=== PATIENT | male | born 1955 | race Caucasian/White ===

== ENCOUNTER 2016-10-09 16:36 | Emergency (ER) | payer OTHER ==
[2016-10-09 17:09] VITALS: BP 124/74
--- NOTE | 2016-10-09 18:05 | EDM.PDOC ---
[id number]: COUGHING UP BLOOD Time Seen by Provider: 10/09/16 18:00 Source of Information: Reports: Patient History Limitations: Reports: No Limitations - History of Present Illness INITIAL COMMENTS - FREE TEXT/NARRATIVE: 60-year-old male with COPD has had hemoptysis for the last 24 hours. This occurred after being exposed to some heavy smoke at work the last 1 to 2 days. He is asymptomatic. His COPD a stable. He has no fever or significant productive cough other than the hemoptysis. No pain. No recent trauma. Onset: Sudden Duration: Hour(s): (Over the last 12-24 hours) Severity: Mild Associated Symptoms: Reports: Cough (Chronic and stable), Shortness of Breath ( Chronic and stable). Denies: Fever/Chills, Nausea/Vomiting - Related Data Allergies Allergy/AdvReac Type Severity Reaction Status Date / Time No Known Allergies Allergy Verified 05/22/16 14:15 Home Meds: Home Meds predniSONE [Prednisone] 1 mg PO BID 07/30/14 [History] Albuterol [Proventil HFA] 2 puff INH TID PRN 10/04/15 [History] Gabapentin [Neurontin] 800 mg PO TID 10/04/15 [History] Budesonide/Formoterol [Symbicort 80-4.5 MCG] 2 puff INH BID 04/12/16 [History] Acetaminophen [Tylenol Extra Strength] 500 mg PO Q4HR 05/22/16 [History] Aspirin [Ecotrin] 81 mg PO DAILY 05/22/16 [History] Clopidogrel Bisulfate [Plavix] 75 mg PO BEDTIME 05/22/16 [History] Lisinopril 2.5 mg PO DAILY 05/22/16 [History] Metoprolol Tartrate 25 mg PO BID 05/22/16 [History] atorvaSTATin Calcium [Atorvastatin Calcium] 40 mg PO BEDTIME 05/22/16 [History] Past Medical History Cardiovascular History: Reports: [place], Stents Respiratory History: Reports: COPD Musculoskeletal History: Reports: Back Pain, Chronic, Other (See Below) Other Musculoskeletal History: spondylosis Neurological History: Reports: Neuropathy, Peripheral - Infectious Disease History Infectious Disease History: Reports: Chicken Pox, Measles, Mumps Other Infectious Disease History: unknown - Past Surgical History GI Surgical History: Reports: Cholecystectomy, Hernia Repair/Other Social & Family History - Family History Family Medical History: Noncontributory - Tobacco Use Smoking Status *Q: Current Every Day Smoker Years of Tobacco use: 40 Packs/Tins Daily: 0.5 Used Tobacco, but Quit: No Second Hand Smoke Exposure: Yes - Caffeine Use Caffeine Use: Reports: Coffee, Soda - Alcohol Use Days Per Week of Alcohol Use: 0 - Recreational Drug Use Recreational Drug Use: No ED ROS GENERAL - Review of Systems Review Of Systems: See Below Constitutional: Denies: Fever, Chills HEENT: Reports: No Symptoms. Denies: Throat Pain Respiratory: Reports: Cough, Hemoptysis Cardiovascular: Denies: Chest Pain, Palpitations GI/Abdominal: Denies: Abdominal Pain, Nausea, Vomiting Musculoskeletal: Reports: Back Pain (Chronic and stable) Skin: Reports: No Symptoms Neurological: Denies: Dizziness, Headache Psychiatric: Reports: No Symptoms ED EXAM, GENERAL - Physical Exam Exam: See Below Exam Limited By: No Limitations General Appearance: Alert, No Apparent Distress Head: Atraumatic Respiratory/Chest: No Respiratory Distress, Lungs Clear, Decreased Breath Sounds (Diffuse) Cardiovascular: Regular Rate, Rhythm Extremities: No: Pedal Edema Neurological: Alert, Oriented Psychiatric: Normal Affect, Normal Mood Skin Exam: Warm, Dry Course - Vital Signs Last Recorded V/S: Last Vital Signs Temp 98.4 F 10/09/16 17:30 Pulse 74 10/09/16 17:30 Resp 16 10/09/16 17:30 BP 124/74 10/09/16 17:30 Pulse Ox 91 L 10/09/16 17:30 - Orders/Labs/Meds Orders: Active Orders 24 hr Category Date Time Status Chest w Cont [CT] Stat Exams 10/09/16 18:29 Taken Saline Lock Insert [OM.PC] Routine Oth 10/09/16 18:19 Ordered Labs: Laboratory Tests 10/09/16 10/09/16 Range/Units 18:10 18:10 WBC 10.3 (4.5-11.0) K/uL RBC 4.86 (4.30-5.90) M/uL Hgb 15.6 H (12.0-15.0) g/dL Hct 45.7 (40.0-54.0) % MCV 94 (80-98) fL MCH 32 H (27-31) pg MCHC 34 (32-36) % Plt Count 167 (150-400) K/uL Neut % (Auto) 58 (36-66) % Lymph % (Auto) 19 L (24-44) % Iron % (Auto) 11 H (2-6) % Eos % (Auto) 11 H (2-4) % Baso % (Auto) 1 (0-1) % Sodium 136 L (140-148) mmol/L Potassium 4.3 (3.6-5.2) mmol/L Chloride 100 (100-108) mmol/L Carbon Dioxide 28 (21-32) mmol/L Anion Gap 12.3 (5.0-14.0) mmol/L BUN 10 (7-18) mg/dL Creatinine 1.0 (0.8-1.3) mg/dL Est Cr Clr Drug Dosing 74.33 mL/min Estimated GFR (MDRD) > 60 (>60) Glucose 114 H (74-106) mg/dL Calcium 8.4 L (8.5-10.1) mg/dL Meds: Medications Discontinued Medications Generic Name Dose Route Start Last Admin Trade Name Freq PRN Reason Stop Dose Admin Sodium Chloride 75 mls @ 3 mls/sec 10/09/16 18:31 10/09/16 18:41 Normal Saline IV 10/09/16 18:32 3 mls/sec ONETIME ONE Administration Iopamidol 100 ml 10/09/16 18:31 10/09/16 18:42 Isovue-300 (61%) IV 10/09/16 18:32 100 ml . DIRECTED PRN Administration RADIOLOGY EXAM Sodium Chloride 10 ml 10/09/16 18:19 10/09/16 19:16 Saline Flush FLUSH 10 ml ASDIRECTED PRN Administration Keep Vein Open Sodium Chloride 10 ml 10/09/16 18:31 10/09/16 18:41 Saline Flush FLUSH 10 ml ONETIME PRN Administration PER RADIOLOGY PROTOCOL - Re-Assessments/Exams Free Text/Narrative Re-Assessment/Exam: 10/09/16 18:04 CBC and BMP were obtained. His creatinine and GFR are normal, a CT with IV contrast of the chest will be obtained. 10/09/16 19:[address] of his chest showed a possible collection of hemoptysis or blood in the base of the lung, and a small nodule that did not appear to be related to the hemoptysis. No obvious evidence of malignancy. Patient will be placed on Levaquin 500 mg daily and asked to follow up at the [facility] for any further studies. Departure - Departure Time of Disposition: 20:27 Disposition: Home, Self-Care 01 Condition: good Clinical Impression: Hemoptysis, unspecified - Discharge Information Instructions: Hemoptysis, [id number] Referrals: PCP,None [Primary Care Provider] - Forms: ED Department Discharge Care Plan Goals: Take antibiotic [facility] prescribed[facility] to discuss the results, especially if hemoptysis persists. Return sooner anytime if worsening such as concerning increase in cough or bleeding, or increased shortness of breath. - My Orders Last 24 Hours: My Active Orders 10/09/16 18:19 Saline Lock Insert [OM.PC] Routine 10/09/16 18:29 Chest w Cont [CT] Stat - Assessment/Plan Last 24 Hours: My Active Orders 10/09/16 18:19 Saline Lock Insert [OM.PC] Routine 10/09/16 18:29 Chest w Cont [CT] Stat
[2016-10-09] MEDS ORDERED: Sodium Chloride 0.9% 10 ML Syringe FLUSH PRN ×2 (18:19→18:31)
[2016-10-09] MEDS ORDERED: Sodium Chloride 0.9% 75 ML IV ONE (18:31)
[2016-10-09] MEDS ORDERED: Iopamidol 612 MG/ML 100 ML Bottle IV PRN (18:31)
== END 2016-10-09 20:15 | disposition home or self-care (01) ==
LOC: JP.ED 16:36
DX: R04.2 Hemoptysis (principal); I25.2 Old myocardial infarction; J44.9 Chronic obstructive pulmonary disease, unspecified; F17.210 Nicotine dependence, cigarettes, uncomplicated; Z90.49 Acquired absence of other specified parts of digestive tract; Z98.890 Other specified postprocedural states; Z79.82 Long term (current) use of aspirin; Z79.02 Long term (current) use of antithrombotics/antiplatelets; Z79.899 Other long term (current) drug therapy
CPT/HCPCS: 36415; 71260; 80048; 85025; 99284; J7030; J7050; Q9967

== ENCOUNTER 2018-08-26 17:52 | Emergency (ER) | payer OTHER | END 2018-08-26 18:03 | disposition left against medical advice (07) | LOC: JP.ED 17:52 | DX: Z53.21 Procedure and treatment not carried out due to patient leaving prior to being seen by health care provider (principal) ==

== ENCOUNTER 2019-08-30 08:41 | Inpatient (IN) | payer OTHER ==
[2019-08-30] MEDS ORDERED: Albuterol/Ipratropium 3.0-0.5 MG/3 ML Neb Soln NEB ONE (08:44)
[2019-08-30] MEDS ORDERED: HYDROmorphone 1 MG/ML Syringe IVPUSH ONE (08:51)
--- NOTE | 2019-08-30 08:53 | EDM.PDOC ---
ED HPI GENERAL MEDICAL PROBLEM - General Stated Complaint: [facility] Time Seen by Provider: 08/30/19 08:43 Source of Information: Reports: Patient, EMS History Limitations: Reports: No Limitations - History of Present Illness INITIAL COMMENTS - FREE TEXT/NARRATIVE: 64-year-old male with COPD, had 30 minutes of hemoptysis last evening he has never had this in the past. He does have a diagnosis of COPD. This morning at 5:30 AM he started coughing again with hemoptysis and is been persistent ever since. He has developed increasing shortness of breath. He has nebulizers at home but not home O2. No pain or fever. He has had some darker stools the last 24 hours as well. He is a DNR/DNI. Reviewing his past records however I saw this patient for hemoptysis in 2017. A CT chest of the chest at that time was inconclusive for source of bleeding, it resolved and a follow-up with the [place] apparently they suspected the lipid exposure along with his COPD at work. He has since retired. He continues to smoke a pack of cigarettes a day. He has been trying to get oxygen from the [place] , but he needs to quit smoking to get oxygen and he can't quit. Onset: Sudden (Hemoptysis started suddenly last evening and lasted 1/2-hour and then resolved till 530 this morning) Associated Symptoms: Reports: Cough, Shortness of Breath - Related Data Allergies Allergy/AdvReac Type Severity Reaction Status Date / Time No Known Allergies Allergy Verified 05/22/16 14:15 Home Meds: Home Meds predniSONE [Prednisone] 1 mg PO BID 07/30/14 [History] Albuterol [Proventil HFA] 2 puff INH TID PRN 10/04/15 [History] Budesonide/Formoterol [Symbicort 80-4.5 MCG] 2 puff INH BID 04/12/16 [History] Acetaminophen [Tylenol Extra Strength] 500 mg PO Q4HR 05/22/16 [History] Aspirin [Ecotrin EC] 81 mg PO DAILY 05/22/16 [History] Clopidogrel Bisulfate [Plavix] 75 mg PO BEDTIME 05/22/16 [History] Lisinopril 2.5 mg PO DAILY 05/22/16 [History] Metoprolol Tartrate 25 mg PO BID 05/22/16 [History] atorvaSTATin Calcium [Atorvastatin Calcium] 40 mg PO BEDTIME 05/22/16 [History] Pregabalin [Lyrica] 150 mg PO TID 08/30/19 [History] Tiotropium [Spiriva] 18 mcg INH DAILY 08/30/19 [History] Past Medical History Cardiovascular History: Reports: [place], Stents Respiratory History: Reports: COPD Musculoskeletal History: Reports: Back Pain, Chronic, Other (See Below) Other Musculoskeletal History: spondylosis Neurological History: Reports: Neuropathy, Peripheral - Infectious Disease History Infectious Disease History: Reports: Chicken Pox, Measles, Mumps Other Infectious Disease History: unknown - Past Surgical History GI Surgical History: Reports: Cholecystectomy, Hernia Repair/Other Social & Family History - Family History Family Medical History: Noncontributory - Caffeine Use Caffeine Use: Reports: Coffee, Soda ED ROS GENERAL - Review of Systems Review Of Systems: See Below Constitutional: Denies: Fever, Chills HEENT: Denies: Throat Pain Respiratory: Reports: Shortness of Breath, Cough, Hemoptysis Cardiovascular: Denies: Chest Pain GI/Abdominal: Denies: Nausea, Vomiting Skin: Reports: No Symptoms Neurological: Denies: Headache ED EXAM, GENERAL - Physical Exam Exam: See Below Exam Limited By: No Limitations General Appearance: Alert, No Apparent Distress Eye Exam: Bilateral Eye: EOMI (Sclera normal) Nose: Other (A small amount of blood at the left nares) Throat/Mouth: Other (Significant amount of non-clotted blood in the oral airway , on the tongue and palate.) Head: Atraumatic Neck: Supple Respiratory/Chest: Decreased Breath Sounds (Decreased breath sounds at the bases with scattered basilar rales) Cardiovascular: Regular Rate, Rhythm GI/Abdominal: Soft, Non-Tender Extremities: Normal Inspection. No: Pedal Edema Neurological: Alert, Oriented Psychiatric: Normal Affect, Normal Mood Skin Exam: Warm, Dry, Other (Numerous bruises on the extremities especially the upper extremities in various stages of healing) Course - Vital Signs Last Recorded V/S: Last Vital Signs Temp 97.5 F 08/30/19 12:51 Pulse 102 H 08/30/19 14:38 Resp 20 08/30/19 12:51 BP 101/64 08/30/19 12:51 Pulse Ox 89 L 08/30/19 13:13 - Orders/Labs/Meds Orders: Medication Orders Acetaminophen (Tylenol) 650 mg PO Q4H PRN PRN Reason: Pain (Mild 1-3)/fever Albuterol (Proventil Neb Soln) 2.5 mg NEB Q4H PRN PRN Reason: Shortness Of Breath/wheezing Albuterol/Ipratropium (Duoneb 3.0-0.5 Mg/3 Ml) 3 ml NEB QIDRT [facility] Last Admin: 08/30/19 14:38 Dose: 3 ml Aspirin (Halfprin) 81 mg PO DAILY [facility] Atorvastatin Calcium (Lipitor) 40 mg PO BEDTIME [facility] Benzonatate (Tessalon Perles) 100 mg PO TID PRN PRN Reason: Cough Glycopyrrolate (Seebri Neohaler) 15.6 mcg IH BIDRT [facility] Lisinopril (Prinivil) 2.5 mg PO DAILY [facility] Lorazepam (Ativan) 0.5 mg IVPUSH Q4H PRN PRN Reason: Nausea/Vomiting Magnesium Hydroxide (Milk Of Magnesia) 30 ml PO Q12H PRN PRN Reason: Constipation Methylprednisolone Sodium Succinate (Solu-Medrol) 62.5 mg IVPUSH Q8H [facility] Stop: 08/30/19 20:01 Metoprolol Tartrate (Lopressor) 25 mg PO BID [facility] Ondansetron HCl (Zofran Odt) 4 mg PO Q6H PRN PRN Reason: Nausea able to take PO Ondansetron HCl (Zofran) 4 mg IV Q6H PRN PRN Reason: Nausea/Vomiting Oxycodone HCl (Oxycodone) 5 mg PO Q4H PRN PRN Reason: Pain (moderate 4-6) Prednisone (Prednisone) 40 mg PO WITHBREAKFAST [facility] Pregabalin (Lyrica) 150 mg PO TID [facility] Last Admin: 08/30/19 13:54 Dose: 150 mg Fluticasone/Salmeterol (Fluticasone-Salmeterol 113-14 Mcg Powder Inh) 1 puff INH BIDRT [facility] Senna/Docusate Sodium (Senna Plus) 1 tab PO BID PRN PRN Reason: Constipation Labs: Laboratory Tests 08/30/19 08/30/19 08/30/19 Range/Units 08:57 08:57 08:57 WBC 12.9 H (4.5-11.0) K/uL RBC 4.71 (4.30-5.90) M/uL Hgb 14.9 (12.0-15.0) g/dL Hct 44.5 (40.0-54.0) % MCV 95 (80-98) fL MCH 32 H (27-31) pg MCHC 34 (32-36) % Plt Count 156 (150-400) K/uL Neut % (Auto) 75 H (36-66) % Lymph % (Auto) 13 L (24-44) % [place] % (Auto) 9 H (2-6) % Eos % (Auto) 3 (2-4) % Baso % (Auto) 1 (0-1) % PT 12.7 H (9.5-12.0) sec INR 1.19 (0.80-1.20) APTT 27.8 (27.0-36.0) sec Sodium 133 L (140-148) mmol/L Potassium 4.7 (3.6-5.2) mmol/L Chloride 99 L (100-108) mmol/L Carbon Dioxide 27 (21-32) mmol/L Anion Gap 11.7 (5.0-14.0) mmol/L BUN 30 H D (7-18) mg/dL Creatinine 1.0 (0.8-1.3) mg/dL Est Cr Clr Drug Dosing 65.57 mL/min Estimated GFR (MDRD) > 60 (>60) Glucose 100 (74-106) mg/dL Calcium 8.2 L (8.5-10.1) mg/dL Total Bilirubin 1.0 D (0.2-1.0) mg/dL AST 24 (15-37) U/L ALT 23 (12-78) U/L Alkaline Phosphatase 111 (46-116) U/L Troponin I < 0.017 (0.000-0.056) ng/mL Total Protein 6.0 L (6.4-8.2) g/dL Albumin 3.2 L (3.4-5.0) g/dL Globulin 2.8 (2.3-3.5) g/dL Albumin/Globulin Ratio 1.1 L (1.2-2.2) Meds: Medications Generic Name Dose Route Start Last Admin Trade Name Freq PRN Reason Stop Dose Admin Acetaminophen 650 mg 08/30/19 12:44 Tylenol PO Q4H PRN Pain (Mild 1-3)/fever Albuterol 2.5 mg 08/30/19 12:44 Proventil Neb Soln NEB Q4H PRN Shortness Of Breath/wheezing Albuterol/Ipratropium 3 ml 08/30/19 15:00 08/30/19 14:38 Duoneb 3.0-0.5 Mg/3 Ml NEB 3 ml QIDRT [facility] Administration Aspirin 81 mg 08/31/19 09:00 Halfprin PO DAILY [facility] Atorvastatin Calcium 40 mg 08/30/19 21:00 Lipitor PO BEDTIME [facility] Benzonatate 100 mg 08/30/19 12:44 Tessalon Perles PO TID PRN Cough Glycopyrrolate 15.6 mcg 08/31/19 09:00 Seebri Neohaler IH BIDRT [facility] Lisinopril 2.5 mg 08/31/19 09:00 Prinivil PO DAILY [facility] Lorazepam 0.5 mg 08/30/19 12:44 Ativan IVPUSH Q4H PRN Nausea/Vomiting Magnesium Hydroxide 30 ml 08/30/19 12:44 Milk Of Magnesia PO Q12H PRN Constipation Methylprednisolone Sodium Succinate 62.5 mg 08/30/19 20:00 Solu-Medrol IVPUSH 08/30/19 20:01 Q8H [facility] Metoprolol Tartrate 25 mg 08/30/19 21:00 Lopressor PO BID [facility] Ondansetron HCl 4 mg 08/30/19 12:44 Zofran Odt PO Q6H PRN Nausea able to take PO Ondansetron HCl 4 mg 08/30/19 12:44 Zofran IV Q6H PRN Nausea/Vomiting Oxycodone HCl 5 mg 08/30/19 12:44 Oxycodone PO Q4H PRN Pain (moderate 4-6) Prednisone 40 mg 08/31/19 08:00 Prednisone PO WITHBREAKFAST [facility] Pregabalin 150 mg 08/30/19 14:00 08/30/19 13:54 Lyrica PO 150 mg TID [facility] Administration Fluticasone/Salmeterol 1 puff 08/30/19 21:00 Fluticasone-Salmeterol 113-14 Mcg Powder Inh INH BIDRT [facility] Senna/Docusate Sodium 1 tab 08/30/19 12:44 Senna Plus PO BID PRN Constipation Discontinued Medications Generic Name Dose Route Start Last Admin Trade Name Gregoryq PRN Reason Stop Dose Admin Albuterol/Ipratropium 3 ml 08/30/19 08:44 08/30/19 08:53 Duoneb 3.0-0.5 Mg/3 Ml NEB 08/30/19 08:45 3 ml ONETIME ONE Administration Sodium Chloride 75 mls @ 3 mls/sec 08/30/19 09:45 08/30/19 10:02 Normal Saline IV 08/30/19 09:46 3 mls/sec ASDIRECTED PAOLA Administration Iopamidol 100 ml 08/30/19 09:44 08/30/19 10:01 Isovue-300 (61%) IV 08/30/19 09:45 100 ml ONETIME ONE Administration Methylprednisolone Sodium Succinate 125 mg 08/30/19 13:00 08/30/19 13:54 Solu-Medrol IVPUSH 08/30/19 13:01 125 mg ONETIME ONE Administration Sodium Chloride 10 ml 08/30/19 09:44 08/30/19 10:01 Saline Flush FLUSH 08/30/19 09:45 10 ml ONETIME PRN Administration per radiology protocol - Re-Assessments/Exams Free Text/Narrative Re-Assessment/Exam: 08/30/19 09:10 A portable chest x-ray was taken which shows bibasilar patchy infiltrates mostly on the right and a possible small nodular density in the right apex, official reading is pending. CBC CMP troponin PT PTT were drawn. 02 gave the patient marked objective and subjective improvement. 08/30/19 09:38 Patient continued to have episodes of intermittent hemoptysis. Chest x-ray reported as below IMPRESSION: 1. Pulmonary emphysema with COPD. 2. Pneumonic infiltrates both lower lobes more on the right. CBC is normal, CMP is relatively normal and troponin is negative. INR is 1.19. A CT of the chest with IV contrast was ordered, and we will contact the [place] [facility] to make sure that admission here is approved. Physically the patient feels much better, like he could "go home". Departure - Departure Time of Disposition: 13:15 Disposition: Admitted As Inpatient 64 Clinical Impression: Hemoptysis, unspecified COPD (chronic obstructive pulmonary disease) Qualifiers: COPD type: emphysema Emphysema type: panlobular Qualified Code(s): J43.1 - Panlobular emphysema - Discharge Information Sepsis Event Note - Focused Exam Vital Signs: Vital Signs Temp Pulse Resp BP Pulse Ox 08/30/19 11:08 94 15 122/74 91 L 08/30/19 08:48 95.6 F L 88 19 143/82 H 89 L Date Exam was Performed: 08/30/19 Time Exam was Performed: 14:39
--- NOTE | 2019-08-30 09:12 | CRLCR ---
INDICATION: Hemoptysis. COMPARISON: None. TECHNIQUE: Portable AP chest. FINDINGS: Pulmonary emphysema was COPD. Pulmonary infiltrates both lower lobes more on the right. No pneumothorax or pleural effusion. IMPRESSION: 1. Pulmonary emphysema with COPD. 2. Pneumonic infiltrates both lower lobes more on the right. Dictated by Mj Gonzales MD @ Aug 30 2019 9:10AM Signed by Dr. Mj Gonzales @ Aug 30 2019 9:11AM
[2019-08-30] MEDS ORDERED: Sodium Chloride 0.9% 10 ML Syringe FLUSH PRN (09:44)
[2019-08-30] MEDS ORDERED: Iopamidol 612 MG/ML 500 ML Multipack Bottle IV ONE (09:44)
[2019-08-30] MEDS ORDERED: Sodium Chloride 0.9% 75 ML IV SCH (09:45)
--- NOTE | 2019-08-30 11:01 | CT ---
Chest w Cont CLINICAL HISTORY: Hemoptysis TECHNIQUE: Transverse scans were obtained from the thoracic inlet to the lung bases without contrast. Auto dosage reduction and iterative reconstruction techniques employed. COMPARISONS: October 2016 FINDINGS: There are diffuse bullous emphysematous changes. The these are predominantly subpleural in location. There is a large bulla in the right posterior and lateral basal segments approximately 10 x 15 x 4 cm. There is a dependent fluid level. This measures high for simple pleural fluid. This may represent some hemorrhage. The infected bulla is possible. Patient has diffuse bilateral right middle lobe and both lower lobe groundglass opacities. There are areas of patchy fibrosis. There are also some patchy nongroundglass like opacities. There is diffuse cylindrical and traction bronchiectasis. There is some honeycombing in the bases. Pulmonary arteries show no filling defects. There are scattered the small mediastinal lymph nodes in the pericarinal region and aortopulmonic window. Largest in the precarinal space measures 1.4 x 0.9 cm. There is a pulmonary nodule near the left hemidiaphragm currently measuring 9 mm. This is very minimal growth over approximately 3 years. IMPRESSION: Severe changes of COPD with numerous large bulla. Large bulla in the right lower lobe with dependent high density fluid collection. This could be blood or pus. Diffuse patchy groundglass opacities and scattered infiltrate-like densities bilaterally. This is felt to represent changes of diffuse alveolar hemorrhage of unknown etiology. 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 Patient has a history of prior hemoptysis. Superimposed pneumonitis would be consideration if there is a fever.
--- NOTE | 2019-08-30 12:13 | PCM.HP.2 ---
H&P History of Present Illness - General Date of Service: 08/30/19 Admit Problem/Dx: Admission Diagnosis/Problem Admission Diagnosis/Problem Acute exacerbation of chronic obstructive airways disease Source of Information: Patient, Provider History Limitations: Reports: No Limitations - History of Present Illness Initial Comments - Free Text/Narative: CC: I keep coughing up blood HPI: Skyler presents to the emergency room today with hemoptysis. He first noticed this yesterday afternoon. He was out in the yard raking when he suddenly developed a cough. Shortly thereafter he developed hemoptysis. He reports moderate hemoptysis throughout the evening before it slowed down. Overnight he had increased hemoptysis again so he came to the emergency room early this morning. He has not had any chest pain. He was very short of breath this morning though he does feel better now that he is on some supplemental oxygen. He has not had any fevers or chills. He did not have a preceding cough. He does not have myalgias or arthralgias. No change in bowel or bladder habits. He did have black stool this morning but thinks it is because he has been swallowing some of the blood that he has been coughing up overnight. He did have an episode of hemoptysis about 3 years ago that resolved spontaneously and did not require any intervention at that time. He does continue to smoke. He has not had any sick contacts or travel. Work-up in the emergency room was unremarkable as far as his laboratory studies. His white count was normal. Vital signs were stable other than his oxygen. Chest x-ray suggested a possible lower lung pneumonia. CT scan was obtained which showed possible blood versus hemosiderin versus pneumonitis in the lower lungs. There appeared to be a popped bleb with a fluid level concerning for hemorrhage though this was relatively small. No obvious evidence for malignancy. Significant emphysema was noted on the CT scan. Patient was requiring 4 L of supplemental oxygen to keep his oxygen saturation around 90%. He was admitted for an exacerbation of his COPD and further monitoring of the hemoptysis. - Related Data Allergies/Adverse Reactions: Allergies Allergy/AdvReac Type Severity Reaction Status Date / Time No Known Allergies Allergy Verified 05/22/16 14:15 Home Medications: Home Meds predniSONE [Prednisone] 1 mg PO BID 07/30/14 [History] Albuterol [Proventil HFA] 2 puff INH TID PRN 10/04/15 [History] Budesonide/Formoterol [Symbicort 80-4.5 MCG] 2 puff INH BID 04/12/16 [History] Acetaminophen [Tylenol Extra Strength] 500 mg PO Q4HR 05/22/16 [History] Aspirin [Ecotrin EC] 81 mg PO DAILY 05/22/16 [History] Clopidogrel Bisulfate [Plavix] 75 mg PO BEDTIME 05/22/16 [History] Lisinopril 2.5 mg PO DAILY 05/22/16 [History] Metoprolol Tartrate 25 mg PO BID 05/22/16 [History] atorvaSTATin Calcium [Atorvastatin Calcium] 40 mg PO BEDTIME 05/22/16 [History] Pregabalin [Lyrica] 150 mg PO TID 08/30/19 [History] Tiotropium [Spiriva] 18 mcg INH DAILY 08/30/19 [History] Past Medical History HEENT History: Reports: Impaired Vision Cardiovascular History: Reports: [place], Stents Respiratory History: Reports: COPD Musculoskeletal History: Reports: Back Pain, Chronic, Other (See Below) Other Musculoskeletal History: spondylosis Neurological History: Reports: Neuropathy, Peripheral - Infectious Disease History Infectious Disease History: Reports: Chicken Pox, Measles, Mumps Other Infectious Disease History: unknown - Past Surgical History GI Surgical History: Reports: Cholecystectomy, Hernia Repair/Other Social & Family History - Family History Family Medical History: Noncontributory - Tobacco Use Smoking Status *Q: Current Every Day Smoker Years of Tobacco use: 50 Packs/Tins Daily: 1 - Caffeine Use Caffeine Use: Reports: Coffee, Soda H&P Review of Systems - Review of Systems: Review Of Systems: See Below Free Text/Narrative: A complete 12 point review of systems was obtained. Pertinent positives and negatives are noted in the history of present illness. All other systems were reviewed and were negative except as noted. Exam - Exam Exam: See Below - Vital Signs Vital Signs: Last Vital Signs Temp 35.3 C L 08/30/19 08:48 Pulse 94 08/30/19 11:08 Resp 15 08/30/19 11:08 BP 122/74 08/30/19 11:08 Pulse Ox 91 L 08/30/19 11:08 Weight: 72.575 kg - Exam Quality Assessment: Supplemental Oxygen General: Alert, Oriented, Cooperative, Mild Distress HEENT: Conjunctiva Clear, Mucosa Moist & [place]. No: Scleral Icterus Neck: Supple, Trachea Midline. No: Lymphadenopathy Lungs: Decreased Breath Sounds (bilateral posteriorly ), Rales (rare at bases). No: Normal Respiratory Effort (increased work of breathing ), Wheezing Cardiovascular: Regular Rate, Regular Rhythm. No: Systolic Murmur GI/Abdominal Exam: Normal Bowel Sounds, Soft, Non-Tender, No Distention Back Exam: Normal Inspection, Full Range of Motion Extremities: No Pedal Edema. No: Joint Swelling, Increased Warmth Skin: Warm, Dry. No: Rash Neuro Extensive - Mental Status: Alert, Oriented x3, Nl Response to Commands Neuro Extensive - Motor, Sensory, Reflexes: No: Dysarthria, Abnormal Motor, Tremor Psychiatric: Alert, Normal Affect - Patient Data Lab Results Last 24 hrs: Laboratory Results - last 24 hr 08/30/19 08/30/19 08/30/19 Range/Units 08:57 08:57 08:57 WBC 12.9 H (4.5-11.0) K/uL RBC 4.71 (4.30-5.90) M/uL Hgb 14.9 (12.0-15.0) g/dL Hct 44.5 (40.0-54.0) % MCV 95 (80-98) fL MCH 32 H (27-31) pg MCHC 34 (32-36) % Plt Count 156 (150-400) K/uL Neut % (Auto) 75 H (36-66) % Lymph % (Auto) 13 L (24-44) % Amador % (Auto) 9 H (2-6) % Eos % (Auto) 3 (2-4) % Baso % (Auto) 1 (0-1) % PT 12.7 H (9.5-12.0) sec INR 1.19 (0.80-1.20) APTT 27.8 (27.0-36.0) sec Sodium 133 L (140-148) mmol/L Potassium 4.7 (3.6-5.2) mmol/L Chloride 99 L (100-108) mmol/L Carbon Dioxide 27 (21-32) mmol/L Anion Gap 11.7 (5.0-14.0) mmol/L BUN 30 H D (7-18) mg/dL Creatinine 1.0 (0.8-1.3) mg/dL Est Cr Clr Drug Dosing 65.57 mL/min Estimated GFR (MDRD) > 60 (>60) Glucose 100 (74-106) mg/dL Calcium 8.2 L (8.5-10.1) mg/dL Total Bilirubin 1.0 D (0.2-1.0) mg/dL AST 24 (15-37) U/L ALT 23 (12-78) U/L Alkaline Phosphatase 111 (46-116) U/L Troponin I < 0.017 (0.000-0.056) ng/mL Total Protein 6.0 L (6.4-8.2) g/dL Albumin 3.2 L (3.4-5.0) g/dL Globulin 2.8 (2.3-3.5) g/dL Albumin/Globulin Ratio 1.1 L (1.2-2.2) Result Diagrams: 08/30/19 08:57 08/30/19 08:57 Imaging Impressions Last 24 hrs: Chest x-ray-image personally reviewed-there appeared to be some lower lung infiltrates bilaterally. No obvious mass or effusion. Heart size is normal. CT scan of the chest-images personally reviewed-there is a large bulla with dependent density concerning for hemorrhage in the right lower lung. He has some scattered groundglass infiltrate-like densities in the lower lungs that could be alveolar hemorrhage versus pneumonitis. No evidence for malignancy. Sepsis Event Note - Evaluation Sepsis Screening Result: No Definite Risk - Focused Exam Vital Signs: Vital Signs Temp Pulse Resp BP Pulse Ox 08/30/19 11:08 94 15 122/74 91 L 08/30/19 08:48 35.3 C L 88 19 143/82 H 89 L Date Exam was Performed: 08/30/19 Time Exam was Performed: 15:56 *Q Meaningful Use (ADM) - VTE *Q VTE Pharmacological Contraindications *Q: Active Hemorrhage - VTE Risk Assess *Q Each Risk Factor Represents 1 Point: Obesity ( BMI > 25 kg/m2), Serious lung disease including pneumonia, Abnormal Pulmonary Function (COPD) Total Score 1 Point Risk Factors: 3 Each Risk Factor Represents 2 Points: Age 60 - 74 Years Total Score 2 Point Risk Factors: 2 Each Risk Factor Represents 3 Points: None Total Score 3 Point Risk Factors: 0 Each Risk Factor Represents 5 Points: None Total Score 5 Point Risk Factors: 0 Venous Thromboembolism Risk Factor Score *Q: 5 - Problem List (1) Acute exacerbation of chronic obstructive pulmonary disease (COPD) SNOMED Code(s): 753108468 ICD Code: J44.1 - CHRONIC OBSTRUCTIVE PULMONARY DISEASE W (ACUTE) EXACERBATION Status: Acute Current Visit: Yes (2) Acute respiratory failure with hypoxia SNOMED Code(s): 14046545, 680138307 ICD Code: J96.01 - ACUTE RESPIRATORY FAILURE WITH HYPOXIA Status: Acute Current Visit: Yes (3) Hemoptysis, unspecified SNOMED Code(s): 62192410 ICD Code: R04.2 - HEMOPTYSIS Status: Acute Current Visit: Yes (4) Tobacco dependence SNOMED Code(s): 27367476 ICD Code: F17.200 - NICOTINE DEPENDENCE, UNSPECIFIED, UNCOMPLICATED Status : Chronic Current Visit: Yes Problem List Initiated/Reviewed/Updated: Yes Orders Last 24hrs: Active Orders 24 hr Category Date Time Status Patient Status Manage Transfer [TRANSFER] Routine ADT 08/30/19 12:03 Ordered RT Aerosol Therapy [RC] ASDIRECTED Care 08/30/19 08:44 Active Resuscitation Status Routine Resus Stat 08/30/19 12:05 Ordered Assessment/Plan Comment:: ASSESSMENT AND PLAN - Acute exacerbation of COPD-complicated by acute respiratory failure with hypoxia. I suspect that the cause for the exacerbation was the hemoptysis outlined below. No strong evidence to support infection at this time although if he does have an infection I suspect it is viral based on CT scan. Low likelihood that this is a bacterial infection. He is significantly hypoxic and currently requiring 4 L of supplemental oxygen. -IV steroids today and transition to prednisone tomorrow -Scheduled and as needed nebulizers -Continue home medications for COPD -Supplement oxygen -Continuous pulse oximetry -Consider empiric antibiotics if he has a fever or gets worse Hemoptysis-I suspect this is because of a popped bleb with his severe emphysema as noted on the CT scan. No evidence for malignancy. Low likelihood that this is bacterial infection. Hemoglobin and vital signs are stable other than his hypoxia. I would anticipate that his hemoptysis will improve over the next 12 to 24 hours. If his condition should worsen he may need transfer for interventional radiology evaluation. -Repeat hemoglobin tonight and in the morning -Consider transfer if significant hemoptysis or deteriorating Tobacco dependence-patient declined nicotine patch. -Encourage cessation Maintenance issues - - DVT prophylaxis -mechanical with active hemorrhage - GI prophylaxis -not indicated - Nutrition -regular - Holloway catheter -not indicated CODE STATUS -DNR/DNI Admission justification -this patient will be admitted for inpatient services and is medically appropriate meeting medical necessity for inpatient admission as outlined in my documentation. I reasonably expect the patient will require inpatient services that span a period time over 2 midnights. I reasonably expect this patient to be discharged or transferred within 96 hours [facility]. Disposition -I would anticipate discharge home after the hospital stay Primary care physician -[facility] M.D. - Mortality Measure Prognosis:: Good
[2019-08-30] MEDS ORDERED: oxyCODONE 5 MG Tab PO PRN (12:44)
[2019-08-30] MEDS ORDERED: Benzonatate 100 MG Cap PO PRN (12:44)
[2019-08-30] MEDS ORDERED: Magnesium Hydroxide 400 MG/5 ML Susp 30 ML Cup PO PRN (12:44)
[2019-08-30] MEDS ORDERED: Ondansetron 4 MG Tab.DIS PO PRN (12:44)
[2019-08-30] MEDS ORDERED: Ondansetron 4 MG/2 ML SDV IV PRN (12:44)
[2019-08-30] MEDS ORDERED: LORazepam 2 MG/ML SDV IVPUSH PRN (12:44)
[2019-08-30] MEDS ORDERED: Acetaminophen 325 MG Tab PO PRN (12:44)
[2019-08-30] MEDS ORDERED: Albuterol 0.083% 2.5 MG/3 ML Neb Soln NEB PRN (12:44)
[2019-08-30] MEDS ORDERED: methylPREDNISolone Sodium Succinate 125 MG/2 ML SDV IVPUSH ONE (13:00)
[2019-08-30] MEDS: Pregabalin 75 MG Cap PO SCH ×2 (13:54→20:18)
[2019-08-30] MEDS: Albuterol/Ipratropium 3.0-0.5 MG/3 ML Neb Soln NEB SCH ×2 (14:38→20:19)
[2019-08-30] MEDS ORDERED: methylPREDNISolone Sodium Succinate 125 MG/2 ML SDV IVPUSH SCH (20:00)
[2019-08-30] MEDS: Fluticasone-Salmeterol 113-14 MCG Powder Inhalant INH SCH (20:16)
[2019-08-30] MEDS: Metoprolol Tartrate 25 MG Tab PO SCH (20:18)
[2019-08-30] MEDS ORDERED: atorvaSTATin 20 MG Tab PO SCH (21:00)
[2019-08-31] MEDS: Albuterol/Ipratropium 3.0-0.5 MG/3 ML Neb Soln NEB SCH ×3 (07:07→14:36)
[2019-08-31] MEDS: Fluticasone-Salmeterol 113-14 MCG Powder Inhalant INH SCH (07:07)
[2019-08-31] MEDS ORDERED: predniSONE 20 MG Tab PO SCH (08:00)
[2019-08-31] MEDS: Metoprolol Tartrate 25 MG Tab PO SCH (08:27)
[2019-08-31] MEDS: Pregabalin 75 MG Cap PO SCH ×2 (08:29→14:48)
[2019-08-31] MEDS ORDERED: Glycopyrrolate 15.6 MCG Cap.W.Dev Kit of 6 IH SCH (09:00)
[2019-08-31] MEDS ORDERED: Aspirin 81 MG Tab.EC PO SCH (09:00)
[2019-08-31] MEDS ORDERED: Lisinopril 2.5 MG Tab PO SCH (09:00)
[2019-08-31 11:08] VITALS: PULSE 96
[2019-08-31 14:48] VITALS: BP 95/59
--- NOTE | 2019-08-31 15:57 | PCM.DCSUM1 ---
Discharge Summary - Hospital Course Brief History: 64-year-old male with history of severe COPD as well as ongoing tobacco dependence and previous coronary artery disease who presented with hemoptysis. He was admitted to the hospital for management of an acute exacerbation of COPD as well as further evaluation of hemoptysis. Diagnosis: Stroke: No - Discharge Data Discharge Date: 08/31/19 Discharge Disposition: Home, Self-Care 01 Condition: Fair - Referral to Home Health Primary Care Physician: PCP None - Discharge Diagnosis/Problem(s) (1) Acute exacerbation of chronic obstructive pulmonary disease (COPD) SNOMED Code(s): 470244189 ICD Code: J44.1 - CHRONIC OBSTRUCTIVE PULMONARY DISEASE W (ACUTE) EXACERBATION Status: Acute Current Visit: Yes (2) Acute respiratory failure with hypoxia SNOMED Code(s): 54775593, 177372126 ICD Code: J96.01 - ACUTE RESPIRATORY FAILURE WITH HYPOXIA Status: Acute Current Visit: Yes (3) Hemoptysis, unspecified SNOMED Code(s): 84717796 ICD Code: R04.2 - HEMOPTYSIS Status: Acute Current Visit: Yes (4) Tobacco dependence SNOMED Code(s): 28598897 ICD Code: F17.200 - NICOTINE DEPENDENCE, UNSPECIFIED, UNCOMPLICATED Status : Chronic Current Visit: Yes - Patient Summary/Data Hospital Course: Skyler presented to the emergency room with hemoptysis. The hemoptysis had started suddenly the night before before improving somewhat and then worsening again prior to his presentation. He did not feel significantly short of breath and was not having chest pain. His hemoglobin was stable but he was noted to be hypoxic in the emergency room. He had poor air movement and an exacerbation of his COPD was suspected as the cause for his shortness of breath. A chest x- ray suggested possible bilateral lower lobe pneumonia. A chest CT was obtained which showed severe emphysema with large bullae. He did have one bullae that had a fluid density that was thought to represent an area of bleeding. This was relatively small. In the lower lungs he had changes consistent with alveolar hemorrhage superimposed on fibrosis. There is no strong evidence to support infection and his CRP was very low. We did start him on steroids and admitted him to the hospital for further management with the significant hemoptysis noted. Overnight he remained stable and his hemoptysis resolved. He did continue to need 4 L of supplemental oxygen. Oxygen saturations overnight initially were in the 88 to 90% range but were not quite as good the next morning. We did see some improvement by increasing his oxygen to 5 L. His lungs do not have any wheezing or crackles at this time. He feels well and is requesting to go home. I did voice my concerns about the quantity of oxygen that he is currently needing. I suspect that his breathing will improve some as the inflammation from the hemoptysis resolves. He will be on prednisone for the next couple of weeks with a taper every few days. We did set him up for home oxygen which he obtained through [facility]. I did have a discussion with him about the severity of his COPD with severe emphysema noted on the CT scan. He is DO NOT RESUSCITATE and DO NOT INTUBATE. He is aware of the severity of his disease. I was hopeful that he would remain hospitalized longer than 1 night but he is very adamant that he go home. We are not performing any acute procedures or treatments at this time and he will be discharged home with home oxygen and a prednisone taper. I anticipated that his hospital stay would span several midnights but he will be discharged much more quickly than anticipated. - Patient Instructions Diet: Heart Healthy Diet Activity: As Tolerated Showering/Bathing: May Shower Notify Provider of: Fever, Increased Pain Other/Special Instructions: 1. You were in the hospital for management of hemoptysis (coughing up blood) as well as an acute exacerbation of COPD with emphysema. Your COPD is severe enough at this time that I recommend home oxygen use. You should use oxygen at 4 L/min with a goal to keep her oxygen levels between 88 and 92%. The hemoptysis has resolved at this time. There was no strong evidence to support infection at this time. To help with the COPD exacerbation I recommend a prednisone taper as outlined below. You may resume activity as tolerated. If you become short of breath or fatigued I recommend that you take a break before resuming activity. -prednisone tape: -- 40 mg by mouth daily for 3 days (Tuesday, Tuesday and Tuesday). --20 mg by mouth daily for 5 days starting on Tuesday. --10 mg by mouth daily for 5 days starting next Tuesday. --5 mg by mouth daily for 5 days starting the following Tuesday (2 weeks from now). --then resume your usual dose of prednisone. 2. Continue your other home medications as previously prescribed. 3. [facility] - Discharge Plan *PRESCRIPTION DRUG MONITORING PROGRAM REVIEWED*: Not Applicable *COPY OF PRESCRIPTION DRUG MONITORING REPORT IN PATIENT BARBARA: Not Applicable Prescriptions/Med Rec: predniSONE [Prednisone] 10 mg PO ASDIRECTED #45 tablet Home Medications: Home Meds predniSONE [Prednisone] 1 mg PO BID 07/30/14 [History] Albuterol [Proventil HFA] 2 puff INH TID PRN 10/04/15 [History] Budesonide/Formoterol [Symbicort 80-4.5 MCG] 2 puff INH BID 04/12/16 [History] Acetaminophen [Tylenol Extra Strength] 500 mg PO Q4HR 05/22/16 [History] Aspirin [Ecotrin EC] 81 mg PO DAILY 05/22/16 [History] Clopidogrel Bisulfate [Plavix] 75 mg PO BEDTIME 05/22/16 [History] Lisinopril 2.5 mg PO DAILY 05/22/16 [History] Metoprolol Tartrate 25 mg PO BID 05/22/16 [History] atorvaSTATin Calcium [Atorvastatin Calcium] 40 mg PO BEDTIME 05/22/16 [History] Pregabalin [Lyrica] 150 mg PO TID 08/30/19 [History] Tiotropium [Spiriva HandiHaler] 18 mcg INH DAILY 08/30/19 [History] predniSONE [Prednisone] 10 mg PO ASDIRECTED #45 tablet 08/31/19 [Rx] Oxygen Therapy Mode: Nasal Cannula (4) Patient Handouts: Chronic Obstructive Pulmonary Disease Exacerbation, Home Oxygen Use, Adult - Discharge Summary/Plan Comment DC Time >30 min.: Yes (45-coordinating home oxygen) - Patient Data Vitals - Most Recent: Last Vital Signs Temp 36.9 C 08/31/19 14:46 Pulse 96 08/31/19 14:46 Resp 20 08/31/19 14:46 BP 95/59 L 08/31/19 14:46 Pulse Ox 82 L 08/31/19 14:46 Weight - Most Recent: 72.575 kg I&O - Last 24 hours: Intake & Output 08/31/19 08/31/19 08/31/19 06:59 14:59 22:59 Intake Total 450 480 Balance 450 480 Lab Results - Last 24 hrs: Laboratory Results - last 24 hr 08/30/19 08/31/19 08/31/19 Range/Units 18:00 04:05 04:05 WBC 16.7 H (4.5-11.0) K/uL RBC 4.19 L (4.30-5.90) M/uL Hgb 14.0 13.3 (12.0-15.0) g/dL Hct 39.4 L (40.0-54.0) % MCV 94 (80-98) fL MCH 32 H (27-31) pg MCHC 34 (32-36) % Plt Count 159 (150-400) K/uL Puncture Site ABG pH (7.350-7.450) ABG pCO2 (35.0-42.0) mmHg ABG pO2 (75.0-100.0) mmHg ABG HCO3 (22.0-26.0) mmol/L ABG Total CO2 (23.0-27.0) mmol/L ABG O2 Saturation (95.0-98.0) % ABG O2 Content (15.0-23.0) %vol ABG Base Excess mm/L ABG Hemoglobin (13.5-18.0) g/dL ABG Oxyhemoglobin % ABG Carboxyhemoglobin (0.0-1.6) % ABG Methemoglobin % Gilberto Test O2 Delivery Device Oxygen Flow Rate L Sodium 133 L (140-148) mmol/L Potassium 5.1 (3.6-5.2) mmol/L Chloride 100 (100-108) mmol/L Carbon Dioxide 25 (21-32) mmol/L Anion Gap 13.1 (5.0-14.0) mmol/L BUN 23 H (7-18) mg/dL Creatinine 1.0 (0.8-1.3) mg/dL Est Cr Clr Drug Dosing 65.57 mL/min Estimated GFR (MDRD) > 60 (>60) Glucose 140 H (74-106) mg/dL Calcium 8.5 (8.5-10.1) mg/dL 08/31/19 Range/Units 09:51 WBC (4.5-11.0) K/uL RBC (4.30-5.90) M/uL Hgb (12.0-15.0) g/dL Hct (40.0-54.0) % MCV (80-98) fL MCH (27-31) pg MCHC (32-36) % Plt Count (150-400) K/uL Puncture Site Rt brachial ABG pH 7.456 H (7.350-7.450) ABG pCO2 30.7 L (35.0-42.0) mmHg ABG pO2 44.4 L* (75.0-100.0) mmHg ABG HCO3 21.3 L (22.0-26.0) mmol/L ABG Total CO2 18.9 L (23.0-27.0) mmol/L ABG O2 Saturation 78.7 L (95.0-98.0) % ABG O2 Content 14.1 L (15.0-23.0) %vol ABG Base Excess -1.2 mm/L ABG Hemoglobin 13.0 L (13.5-18.0) g/dL ABG Oxyhemoglobin 77.1 % ABG Carboxyhemoglobin 1.1 (0.0-1.6) % ABG Methemoglobin 0.9 % Gilberto Test Performed O2 Delivery Device Nasal cannula Oxygen Flow Rate 4.0 L Sodium (140-148) mmol/L Potassium (3.6-5.2) mmol/L Chloride (100-108) mmol/L Carbon Dioxide (21-32) mmol/L Anion Gap (5.0-14.0) mmol/L BUN (7-18) mg/dL Creatinine (0.8-1.3) mg/dL Est Cr Clr Drug Dosing mL/min Estimated GFR (MDRD) (>60) Glucose (74-106) mg/dL Calcium (8.5-10.1) mg/dL Med Orders - Current: Current Medications Acetaminophen (Tylenol) 650 mg PO Q4H PRN PRN Reason: Pain (Mild 1-3)/fever Albuterol (Proventil Neb Soln) 2.5 mg NEB Q4H PRN PRN Reason: Shortness Of Breath/wheezing Last Admin: 08/31/19 03:37 Dose: 2.5 mg Albuterol/Ipratropium (Duoneb 3.0-0.5 Mg/3 Ml) 3 ml NEB QIDRT [facility]OL[facility] Last Admin: 08/31/19 14:36 Dose: 3 ml Aspirin (Halfprin) 81 mg PO DAILY [facility] Last Admin: 08/31/19 08:27 Dose: 81 mg Atorvastatin Calcium (Lipitor) 40 mg PO BEDTIME [facility] Last Admin: 08/30/19 20:18 Dose: 40 mg Benzonatate (Tessalon Perles) 100 mg PO TID PRN PRN Reason: Cough Glycopyrrolate (Seebri Neohaler) 15.6 mcg IH BIDRT [facility] Last Admin: 08/31/19 08:15 Dose: 15.6 mcg Lisinopril (Prinivil) 2.5 mg PO DAILY [facility] Last Admin: 08/31/19 08:27 Dose: 2.5 mg Lorazepam (Ativan) 0.5 mg IVPUSH Q4H PRN PRN Reason: Nausea/Vomiting Magnesium Hydroxide (Milk Of Magnesia) 30 ml PO Q12H PRN PRN Reason: Constipation Metoprolol Tartrate (Lopressor) 25 mg PO BID [facility] Last Admin: 08/31/19 08:27 Dose: 25 mg Ondansetron HCl (Zofran Odt) 4 mg PO Q6H PRN PRN Reason: Nausea able to take PO Ondansetron HCl (Zofran) 4 mg IV Q6H PRN PRN Reason: Nausea/Vomiting Oxycodone HCl (Oxycodone) 5 mg PO Q4H PRN PRN Reason: Pain (moderate 4-6) Prednisone (Prednisone) 40 mg PO WITHBREAKFAST [facility] Last Admin: 08/31/19 07:20 Dose: 40 mg Pregabalin (Lyrica) 150 mg PO TID [facility] Last Admin: 08/31/19 14:48 Dose: 150 mg Fluticasone/Salmeterol (Fluticasone-Salmeterol 113-14 Mcg Powder Inh) 1 puff INH BIDRT [facility] Last Admin: 08/31/19 07:07 Dose: 1 puff Senna/Docusate Sodium (Senna Plus) 1 tab PO BID PRN PRN Reason: Constipation Discontinued Medications Albuterol/Ipratropium (Duoneb 3.0-0.5 Mg/3 Ml) 3 ml NEB ONETIME ONE Stop: 08/30/19 08:45 Last Admin: 08/30/19 08:53 Dose: 3 ml Sodium Chloride (Normal Saline) 75 mls @ 3 mls/sec IV ASDIRECTED [facility] Stop: 08/30/19 09:46 Last Admin: 08/30/19 10:02 Dose: 3 mls/sec Iopamidol (Isovue-300 (61%)) 100 ml IV ONETIME ONE Stop: 08/30/19 09:45 Last Admin: 08/30/19 10:01 Dose: 100 ml Methylprednisolone Sodium Succinate (Solu-Medrol) 125 mg IVPUSH ONETIME ONE Stop: 08/30/19 13:01 Last Admin: 08/30/19 13:54 Dose: 125 mg Methylprednisolone Sodium Succinate (Solu-Medrol) 62.5 mg IVPUSH Q8H [facility] Stop: 08/30/19 20:01 Last Admin: 08/30/19 20:19 Dose: 62.5 mg Sodium Chloride (Saline Flush) 10 ml FLUSH ONETIME PRN PRN Reason: per radiology protocol Stop: 08/30/19 09:45 Last Admin: 08/30/19 10:01 Dose: 10 ml *Q Meaningful Use (DIS) - VTE *Q VTE Pharmacological Contraindications *Q: Active Hemorrhage
== END 2019-08-31 16:50 | disposition home or self-care (01) | DRG 190 ==
LOC: JP.ED 08:41 → JP.MS 12:03
PROVIDERS: ADMIT Internal Medicine; ATTEND Internal Medicine
DX: J44.1 Chronic obstructive pulmonary disease with (acute) exacerbation (principal); J43.1 Panlobular emphysema; F17.210 Nicotine dependence, cigarettes, uncomplicated; J18.9 Pneumonia, unspecified organism; J96.01 Acute respiratory failure with hypoxia; R04.2 Hemoptysis; Z66 Do not resuscitate; J84.10 Pulmonary fibrosis, unspecified; M54.9 Dorsalgia, unspecified; G89.29 Other chronic pain; G62.9 Polyneuropathy, unspecified; F17.200 Nicotine dependence, unspecified, uncomplicated; Z79.52 Long term (current) use of systemic steroids; Z79.82 Long term (current) use of aspirin; Z79.899 Other long term (current) drug therapy; I25.2 Old myocardial infarction; Z95.5 Presence of coronary angioplasty implant and graft
CPT/HCPCS: 36415; 71045; 71260; 71260-26; 80048; 80053; 82803; 84484; 85018; 85025; 85027; 85610; 85730; 86140; 94640; 94762; 96374; 99284; 99285-25; A9270-GY; J2930; J7050; J7512; J7620-GY; Q9967

== ENCOUNTER 2019-12-28 17:15 | Emergency (ER) | payer OTHER ==
[2019-12-28] MEDS ORDERED: Nitroglycerin 0.4 MG Tab.SL SL ONE (17:17)
[2019-12-28] MEDS ORDERED: Aspirin 81 MG Tab.Chew PO ONE (17:17)
[2019-12-28] MEDS ORDERED: Sodium Chloride 0.9% 10 ML Syringe FLUSH PRN (17:18)
[2019-12-28] MEDS ORDERED: Morphine 4 MG/ML Syringe IVPUSH PRN (17:20)
[2019-12-28 17:25] VITALS: BP 85/52; PULSE 57
--- NOTE | 2019-12-28 17:27 | EDM.PDOC ---
<OfficerBurton - Last Filed: 12/28/19 17:21> ED HPI GENERAL MEDICAL PROBLEM - General Stated Complaint: POSSIBLE HEART ATTACK Time Seen by Provider: 12/28/19 17:20 Source of Information: Reports: Patient, Old Records, RN Notes Reviewed History Limitations: Reports: No Limitations - History of Present Illness INITIAL COMMENTS - FREE TEXT/NARRATIVE: 64-year-old gentleman presents emergency department a complaint of chest pain with pain radiating down both arms he states the pain started approximately 30 minutes prior to presentation to the ED he has been very diaphoretic he is not more short of breath than usual, no nausea or vomiting. Does have an extensive cardiac history with stent placement 2016 also history of COPD - Related Data Allergies Allergy/AdvReac Type Severity Reaction Status Date / Time morphine AdvReac Hallucinati Verified 12/28/19 18:48 ons Home Meds: Home Meds predniSONE [Prednisone] 1 mg PO DAILY 07/30/14 [History] Albuterol [Proventil HFA] 2 puff INH TID PRN 10/04/15 [History] Budesonide/Formoterol [Symbicort 80-4.5 MCG] 2 puff INH BID 04/12/16 [History] Acetaminophen [Tylenol Extra Strength] 500 mg PO Q4HR 05/22/16 [History] Aspirin [Ecotrin EC] 81 mg PO DAILY 05/22/16 [History] Metoprolol Tartrate 25 mg PO BID 05/22/16 [History] Pregabalin [Lyrica] 150 mg PO TID 08/30/19 [History] Tiotropium [Spiriva HandiHaler] 18 mcg INH DAILY 08/30/19 [History] Cholecalciferol (Vitamin D3) [D3 Dots] 2,000 unit PO DAILY 12/28/19 [History] Cyanocobalamin (Vitamin B-12) [B-12] 1,000 mcg PO DAILY 12/28/19 [History] Nitroglycerin [Nitrostat] 0.4 mg SL ASDIRECTED PRN 12/28/19 [History] Past Medical History HEENT History: Reports: Impaired Vision Cardiovascular History: Reports: CAD, High Cholesterol, Hypertension, [place], Stents Respiratory History: Reports: COPD Musculoskeletal History: Reports: Back Pain, Chronic, Other (See Below) Other Musculoskeletal History: spondylosis Neurological History: Reports: Neuropathy, Peripheral - Infectious Disease History Infectious Disease History: Reports: Chicken Pox, Measles, Mumps Other Infectious Disease History: unknown - Past Surgical History GI Surgical History: Reports: Cholecystectomy, Hernia Repair/Other Social & Family History - Family History Family Medical History: Noncontributory - Tobacco Use Smoking Status *Q: Current Every Day Smoker - Caffeine Use Caffeine Use: Reports: Coffee, Soda ED ROS GENERAL - Review of Systems Review Of Systems: See Below Constitutional: Reports: Diaphoresis HEENT: Reports: No Symptoms Respiratory: Reports: Shortness of Breath Cardiovascular: Reports: Chest Pain, Dyspnea on Exertion GI/Abdominal: Reports: No Symptoms : Reports: No Symptoms Musculoskeletal: Reports: No Symptoms ED EXAM, GENERAL - Physical Exam Exam: See Below Exam Limited By: No Limitations General Appearance: Alert, Mild Distress Neck: Normal Inspection, Supple, Non-Tender, Full Range of Motion Respiratory/Chest: No Accessory Muscle Use, Decreased Breath Sounds, Wheezing Cardiovascular: Regular Rate, Rhythm, No Murmur GI/Abdominal: Soft, Non-Tender Skin Exam: Diaphoretic Departure - Departure Disposition: Home, Self-Care 01 Clinical Impression: Non-cardiac chest pain, Vasovagal near syncope COPD (chronic obstructive pulmonary disease) Qualifiers: COPD type: emphysema Emphysema type: panlobular Qualified Code(s): J43.1 - Panlobular emphysema Instructions: Nonspecific Chest Pain, Adult Referrals: PCP,None [Primary Care Provider] - Forms: ED Department Discharge Care Plan Goals: Continue your current medications and increase activity as tolerated. Return anytime if worsening or concerns. Try to limit smoking. <Papito Koch - Last Filed: 12/28/19 22:16> Course - Vital Signs Last Recorded V/S: Last Vital Signs Temp 95.9 F L 12/28/19 17:54 Pulse 57 L 12/28/19 17:27 Resp 18 12/28/19 17:27 BP 85/52 L 12/28/19 17:27 Pulse Ox 91 L 12/28/19 17:27 - Orders/Labs/Meds Orders: Active Orders 24 hr Category Date Time Status Chest 1V Frontal [CR] Stat Exams 12/28/19 17:17 Taken Saline Lock Insert [OM.PC] Routine Oth 12/28/19 17:18 Ordered EKG 12 Lead [EK] Routine Ther 12/28/19 17:18 Ordered Labs: Laboratory Tests 12/28/19 12/28/19 12/28/19 Range/Units 17:23 17:23 20:04 WBC 12.5 H (4.5-11.0) K/uL RBC 5.28 (4.30-5.90) M/uL Hgb 14.9 (12.0-15.0) g/dL Hct 46.4 (40.0-54.0) % MCV 88 (80-98) fL MCH 28 (27-31) pg MCHC 32 (32-36) % Plt Count 209 (150-400) K/uL Neut % (Auto) 62 (36-66) % Lymph % (Auto) 23 L (24-44) % [place] % (Auto) 12 H (2-6) % Eos % (Auto) 3 (2-4) % Baso % (Auto) 1 (0-1) % Sodium 135 L (140-148) mmol/L Potassium 4.0 (3.6-5.2) mmol/L Chloride 103 (100-108) mmol/L Carbon Dioxide 23 (21-32) mmol/L Anion Gap 13.0 (5.0-14.0) mmol/L BUN 11 D (7-18) mg/dL Creatinine 1.2 (0.8-1.3) mg/dL Est Cr Clr Drug Dosing 68.43 mL/min Estimated GFR (MDRD) > 60 (>60) Glucose 104 (74-106) mg/dL Calcium 8.5 (8.5-10.1) mg/dL Total Bilirubin 0.8 (0.2-1.0) mg/dL AST 27 (15-37) U/L ALT 20 (12-78) U/L Alkaline Phosphatase 131 H (46-116) U/L Troponin I < 0.017 0.055 (0.000-0.056) ng/mL Total Protein 6.7 (6.4-8.2) g/dL Albumin 3.7 (3.4-5.0) g/dL Globulin 3.0 (2.3-3.5) g/dL Albumin/Globulin Ratio 1.2 (1.2-2.2) Meds: Medications Discontinued Medications Generic Name Dose Route Start Last Admin Trade Name Freq PRN Reason Stop Dose Admin Acetaminophen 1,000 mg 12/28/19 19:10 12/28/19 19:18 Tylenol Extra Strength PO 12/28/19 19:11 1,000 mg ONETIME ONE Administration Aspirin 324 mg 12/28/19 17:17 12/28/19 17:23 Aspirin PO 12/28/19 17:18 324 mg ONETIME ONE Administration Sodium Chloride 1,000 mls @ 999 mls/hr 12/28/19 17:30 12/28/19 17:29 Normal Saline IV 999 mls/hr ASDIRECTED PAOLA Administration Morphine Sulfate 4 mg 12/28/19 17:20 12/28/19 17:31 Morphine IVPUSH 12/29/19 17:21 4 mg Q10M PRN Administration Chest Pain Nitroglycerin 0.4 mg 12/28/19 17:17 Nitrostat SL 12/28/19 17:18 ONETIME ONE Sodium Chloride 10 ml 12/28/19 17:18 Saline Flush FLUSH ASDIRECTED PRN Keep Vein Open - Re-Assessments/Exams Free Text/Narrative Re-Assessment/Exam: 12/28/19 20:12 Patient care turned over from Officer pending a repeat troponin. We did do a head CT without contrast due to his confusion and it was negative. After 1000 mg of Tylenol the pain slowly improved, it came on extremely suddenly in the left upper chest, I suspect he had a pulmonary bleb that may have popped or released. Repeat troponin was still within normal limits although slightly increased , patient was reassured and discharged. 12/28/19 20:40 Patient will return if symptoms recur or he has persistent difficulties. Departure - Departure Time of Disposition: 20:48 Sepsis Event Note (ED) - Focused Exam Vital Signs: Vital Signs Temp Pulse Resp BP Pulse Ox 12/28/19 17:54 95.9 F L 12/28/19 17:27 57 L 18 85/52 L 91 L 12/28/19 17:24 57 L 18 85/52 L 91 L 12/28/19 17:23 60 22 H 83/45 L 90 L
[2019-12-28] MEDS ORDERED: Sodium Chloride 0.9% 1,000 ML IV SCH (17:30)
--- NOTE | 2019-12-28 19:08 | CRLCT ---
INDICATION: Confusion, visual changes TECHNIQUE: CT head without contrast. COMPARISON: None FINDINGS: CSF spaces: Within normal limits for age. Brain parenchyma: The deleon-white differentiation is normal. No sign of mass, hemorrhage, or midline shift. Probable remote lacunar infarct right caudate nucleus. Skull base and calvarium: The visualized paranasal sinuses and mastoid air cells demonstrate no acute or significant findings. The visualized orbits are grossly unremarkable. No skull fractures. IMPRESSION: No acute intracranial abnormalities. Dictated by Aime Duenas MD @ 12/28/2019 7:07:28 PM Please note that all CT scans at this facility use dose modulation, iterative reconstruction, and/or weight-based dosing when appropriate to reduce radiation dose to as low as reasonably achievable. Dictated by: Aime Duenas MD @ 12/28/2019 19:07:34 (Electronically Signed)
[2019-12-28] MEDS ORDERED: Acetaminophen 500 MG Tab PO ONE (19:10)
--- NOTE | 2019-12-31 09:33 | CR ---
CHEST: Portable 12/28/2019 5:26 PM CLINICAL HISTORY:Chest pain COMPARISON: August 2019 FINDINGS: The heart size, pulmonary vascularity and hilar structures are normal. No infiltrate effusion or pneumothorax is seen. There is some generalized interstitial prominence in the bases left greater than right. This is chronic. Previous is seen right lower lobe infiltrate has resolved There are atherosclerotic changes in the aorta. IMPRESSION: No acute cardiopulmonary process. Chronic interstitial changes
== END 2019-12-28 20:47 | disposition home or self-care (01) ==
LOC: JP.ED 17:15
DX: J43.1 Panlobular emphysema (principal); R07.89 Other chest pain; R55 Syncope and collapse; E78.00 Pure hypercholesterolemia, unspecified; I10 Essential (primary) hypertension; I25.2 Old myocardial infarction; I25.10 Atherosclerotic heart disease of native coronary artery without angina pectoris; Z90.89 Acquired absence of other organs; Z88.6 Allergy status to analgesic agent; Z79.82 Long term (current) use of aspirin; Z79.899 Other long term (current) drug therapy
CPT/HCPCS: 36415; 70450; 71045; 80053; 84484; 85025; 93005; 96361; 96374; 99285; A9270; J2270; J7030; 99284

== ENCOUNTER 2019-12-29 13:32 | Emergency (ER) | payer OTHER ==
--- NOTE | 2019-12-29 14:38 | EDM.PDOC ---
ED HPI GENERAL MEDICAL PROBLEM - General Chief Complaint: Cardiovascular Problem Stated Complaint: CHEST PRESSURE,LEFT ARM NUMB Time Seen by Provider: 12/29/19 14:30 Source of Information: Reports: Patient, Family, Old Records, RN Notes Reviewed History Limitations: Reports: No Limitations - History of Present Illness INITIAL COMMENTS - FREE TEXT/NARRATIVE: 64-year-old gentleman presents emergency department a complaint of left arm pain, he has a known history of coronary artery disease was evaluated yesterday for this arm pain as well as shortness of breath with diaphoresis cardiac work- up at that time was negative to troponins and a negative EKG sent home. He states he still having arm pain he is not short of breath no chest pain he is concerned about a pinched nerve in his neck Left Hand Pain Score (Numeric/FACES): 0 - Related Data Allergies Allergy/AdvReac Type Severity Reaction Status Date / Time morphine AdvReac Hallucinati Verified 12/29/19 14:17 ons Home Meds: Home Meds predniSONE [Prednisone] 1 mg PO DAILY 07/30/14 [History] Albuterol [Proventil HFA] 2 puff INH TID PRN 10/04/15 [History] Budesonide/Formoterol [Symbicort 80-4.5 MCG] 2 puff INH BID 04/12/16 [History] Acetaminophen [Tylenol Extra Strength] 500 mg PO Q4HR 05/22/16 [History] Aspirin [Ecotrin EC] 81 mg PO DAILY 05/22/16 [History] Metoprolol Tartrate 25 mg PO BID 05/22/16 [History] Pregabalin [Lyrica] 150 mg PO TID 08/30/19 [History] Tiotropium [Spiriva HandiHaler] 18 mcg INH DAILY 08/30/19 [History] Cholecalciferol (Vitamin D3) [D3 Dots] 2,000 unit PO DAILY 12/28/19 [History] Cyanocobalamin (Vitamin B-12) [B-12] 1,000 mcg PO DAILY 12/28/19 [History] Nitroglycerin [Nitrostat] 0.4 mg SL ASDIRECTED PRN 12/28/19 [History] Past Medical History HEENT History: Reports: Impaired Vision Cardiovascular History: Reports: CAD, High Cholesterol, Hypertension, [place], Stents Respiratory History: Reports: COPD Gastrointestinal History: Reports: None Musculoskeletal History: Reports: Back Pain, Chronic, Other (See Below) Other Musculoskeletal History: spondylosis Neurological History: Reports: Neuropathy, Peripheral - Infectious Disease History Infectious Disease History: Reports: Chicken Pox, Measles, Mumps Other Infectious Disease History: unknown - Past Surgical History Head Surgeries/Procedures: Reports: None HEENT Surgical History: Reports: None Cardiovascular Surgical History: Reports: Coronary Artery Stent Respiratory Surgical History: Reports: None GI Surgical History: Reports: Cholecystectomy, Hernia Repair/Other Neurological Surgical History: Reports: None Musculoskeletal Surgical History: Reports: None Dermatological Surgical History: Reports: None Social & Family History - Family History Family Medical History: Noncontributory - Caffeine Use Caffeine Use: Reports: Coffee ED ROS GENERAL - Review of Systems Review Of Systems: See Below Constitutional: Reports: No Symptoms HEENT: Reports: No Symptoms Respiratory: Reports: No Symptoms Cardiovascular: Reports: No Symptoms GI/Abdominal: Reports: No Symptoms : Reports: No Symptoms Musculoskeletal: Reports: Arm Pain ED EXAM, GENERAL - Physical Exam Exam: See Below Exam Limited By: No Limitations General Appearance: Alert, WD/WN, No Apparent Distress Head: Atraumatic, Normocephalic Neck: Normal Inspection, Supple, Non-Tender, Full Range of Motion Respiratory/Chest: No Respiratory Distress, Lungs Clear, Normal Breath Sounds, No Accessory Muscle Use, Chest Non-Tender Cardiovascular: Regular Rate, Rhythm, No Murmur Peripheral Pulses: 2+: Radial (L), Radial (R) Extremities: Normal Inspection, Normal Range of Motion Neurological: Other (Power is 5 x 5 in upper extremities) Course - Vital Signs Last Recorded V/S: Last Vital Signs Temp 98.8 F 12/29/19 14:20 Pulse 56 L 12/29/19 14:48 Resp 21 H 12/29/19 14:48 BP 112/67 12/29/19 14:48 Pulse Ox 95 12/29/19 14:48 - Orders/Labs/Meds Orders: Active Orders 24 hr Category Date Time Status Cardiac Monitoring [RC] STAT Care 12/29/19 15:34 Active Communication Order [RC] Per Unit Routine Care 12/29/19 15:34 Active Communication Order [RC] Per Unit Routine Care 12/29/19 15:34 Active EKG Documentation Completion [RC] ASDIRECTED Care 12/29/19 15:56 Ordered Peripheral IV Care [RC] . DIRECTED Care 12/29/19 15:35 Active Heparin Sodium/D5W [Heparin 25,000 Units in D5W 500 ML] Med 12/29/19 15:45 Active 25,000 units in 500 ml IV TITRATE Sodium Chloride 0.9% [Saline Flush] Med 12/29/19 15:34 Active 10 ml FLUSH ASDIRECTED PRN Peripheral IV Insertion Adult [OM.PC] Stat Oth 12/29/19 15:34 Ordered EKG 12 Lead [EK] Routine Ther 12/29/19 15:56 Ordered Medication Orders Heparin Sodium/Dextrose (Heparin 25,000 Units In D5w 500 Ml) 25,000 units in 500 mls @ 18.312 mls/hr IV TITRATE PAOLA; Protocol Last Admin: 12/29/19 15:50 Dose: 12 units/kg/hr, 18.312 mls/hr Documented by: EDNA Cosigned by: PARKER Sodium Chloride (Saline Flush) 10 ml FLUSH ASDIRECTED PRN PRN Reason: Keep Vein Open Last Admin: 12/29/19 15:55 Dose: 10 ml Documented by: EDNA Labs: Laboratory Tests 12/29/19 12/29/19 12/29/19 Range/Units 14:49 14:49 15:39 WBC 10.6 (4.5-11.0) K/uL RBC 5.00 (4.30-5.90) M/uL Hgb 14.1 (12.0-15.0) g/dL Hct 44.7 (40.0-54.0) % MCV 89 (80-98) fL MCH 28 (27-31) pg MCHC 32 (32-36) % Plt Count 168 (150-400) K/uL Neut % (Auto) 72 H (36-66) % Lymph % (Auto) 14 L (24-44) % [place] % (Auto) 12 H (2-6) % Eos % (Auto) 2 (2-4) % Baso % (Auto) 0 (0-1) % PT (9.5-12.0) sec INR (0.80-1.20) APTT (27.0-36.0) sec D-Dimer, Quantitative 507 H (0.0-400.0) ng/mL Sodium (140-148) mmol/L Potassium (3.6-5.2) mmol/L Chloride (100-108) mmol/L Carbon Dioxide (21-32) mmol/L Anion Gap (5.0-14.0) mmol/L BUN (7-18) mg/dL Creatinine (0.8-1.3) mg/dL Est Cr Clr Drug Dosing mL/min Estimated GFR (MDRD) (>60) Glucose (74-106) mg/dL Calcium (8.5-10.1) mg/dL Troponin I 18.606 H* (0.000-0.056) ng/mL 12/29/19 12/29/19 Range/Units 15:39 15:39 WBC (4.5-11.0) K/uL RBC (4.30-5.90) M/uL Hgb (12.0-15.0) g/dL Hct (40.0-54.0) % MCV (80-98) fL MCH (27-31) pg MCHC (32-36) % Plt Count (150-400) K/uL Neut % (Auto) (36-66) % Lymph % (Auto) (24-44) % [place] % (Auto) (2-6) % Eos % (Auto) (2-4) % Baso % (Auto) (0-1) % PT 12.3 H (9.5-12.0) sec INR 1.13 (0.80-1.20) APTT 26.0 L (27.0-36.0) sec D-Dimer, Quantitative (0.0-400.0) ng/mL Sodium 138 L (140-148) mmol/L Potassium 4.7 (3.6-5.2) mmol/L Chloride 105 (100-108) mmol/L Carbon Dioxide 26 (21-32) mmol/L Anion Gap 11.7 (5.0-14.0) mmol/L BUN 10 (7-18) mg/dL Creatinine 1.0 (0.8-1.3) mg/dL Est Cr Clr Drug Dosing 78.42 mL/min Estimated GFR (MDRD) > 60 (>60) Glucose 96 (74-106) mg/dL Calcium 8.5 (8.5-10.1) mg/dL Troponin I (0.000-0.056) ng/mL Meds: Medications Generic Name Dose Route Start Last Admin Trade Name Freq PRN Reason Stop Dose Admin Heparin Sodium/Dextrose 25,000 units in 500 mls @ 18.312 mls/hr 12/29/19 15:45 12/29/19 15:50 Heparin 25,000 Units In D5w 500 Ml IV 12 units/kg/hr TITRATE PAOLA 18.312 mls/hr Administration Protocol 12 UNITS/KG/HR Sodium Chloride 10 ml 12/29/19 15:34 12/29/19 15:55 Saline Flush FLUSH 10 ml ASDIRECTED PRN Administration Keep Vein Open Discontinued Medications Generic Name Dose Route Start Last Admin Trade Name Gregoryq PRN Reason Stop Dose Admin Aspirin 324 mg 12/29/19 15:34 12/29/19 15:45 Aspirin PO 12/29/19 15:35 324 mg ONETIME ONE Administration Fentanyl 50 mcg 12/29/19 15:59 Sublimaze IVPUSH 12/29/19 16:00 ONETIME ONE Heparin Sodium (Porcine) 4,000 units 12/29/19 15:34 12/29/19 15:46 Heparin Sodium IVPUSH 12/29/19 15:35 4,000 units ONETIME ONE Administration Ticagrelor 180 mg 12/29/19 15:34 12/29/19 15:46 Brilinta PO 12/29/19 15:35 180 mg ONETIME ONE Administration Departure - Departure Time of Disposition: 16:10 Disposition: DC/Tfer to Acute Hospital 02 Reason for Transfer *Q: Primary PCI Indicated Condition: Fair Clinical Impression: Non-ST elevated myocardial infarction Referrals: PCP,None [Primary Care Provider] - Forms: ED Department Discharge Sepsis Event Note (ED) - Evaluation Sepsis Screening Result: No Definite Risk - Focused Exam Vital Signs: Vital Signs Temp Pulse Resp BP Pulse Ox 12/29/19 14:48 56 L 21 H 112/67 95 12/29/19 14:20 98.8 F 78 24 H 101/66 92 L 12/29/19 14:18 77 21 H 106/70 96 12/29/19 13:54 98.8 F 78 24 H 101/66 92 L - My Orders Last 24 Hours: My Active Orders 12/29/19 15:34 Cardiac Monitoring [RC] STAT Communication Order [RC] Per Unit Routine Communication Order [RC] Per Unit Routine Sodium Chloride 0.9% [Saline Flush] 10 ml FLUSH ASDIRECTED PRN Peripheral IV Insertion Adult [OM.PC] Stat 12/29/19 15:35 Peripheral IV Care [RC] . DIRECTED 12/29/19 15:45 Heparin Sodium/D5W [Heparin 25,000 Units in D5W 500 ML] 25,000 units in 500 ml IV TITRATE 12/29/19 15:56 EKG Documentation Completion [RC] ASDIRECTED EKG 12 Lead [EK] Routine - Assessment/Plan Last 24 Hours: My Active Orders 12/29/19 15:34 Cardiac Monitoring [RC] STAT Communication Order [RC] Per Unit Routine Communication Order [RC] Per Unit Routine Sodium Chloride 0.9% [Saline Flush] 10 ml FLUSH ASDIRECTED PRN Peripheral IV Insertion Adult [OM.PC] Stat 12/29/19 15:35 Peripheral IV Care [RC] . DIRECTED 12/29/19 15:45 Heparin Sodium/D5W [Heparin 25,000 Units in D5W 500 ML] 25,000 units in 500 ml IV TITRATE 12/29/19 15:56 EKG Documentation Completion [RC] ASDIRECTED EKG 12 Lead [EK] Routine Plan: Assessment Acuity = acute Site and laterality = non-ST elevation myocardial infarction Etiology = coronary artery disease Manifestations = none Location of injury = Home Lab values = CBC, BMP unremarkable troponin elevated 18.6 EKG demonstrates a normal sinus rhythm no sign of ST elevation or depression Plan Call discussed case Dr. Salguero at [facility] he kindly accept the patient in transport thus far has been given aspirin, 180 mg Brilinta, 4000 units bolus of heparin and will be initiated heparin drip in route. Will be transported via EMS ground This note was dictated using [employer] voice recognition software please call with any questions on syntax or grammar.
[2019-12-29] MEDS ORDERED: Sodium Chloride 0.9% 10 ML Syringe FLUSH PRN (15:34)
[2019-12-29] MEDS ORDERED: Heparin Sodium 5,000 Units/ML Vial IVPUSH ONE (15:34)
[2019-12-29] MEDS ORDERED: Ticagrelor 90 MG Tab PO ONE (15:34)
[2019-12-29] MEDS ORDERED: Aspirin 81 MG Tab.Chew PO ONE (15:34)
[2019-12-29] MEDS ORDERED: Heparin Sodium/D5W 25,000 UNITS/500 ML BAG IV SCH (15:45)
[2019-12-29] MEDS ORDERED: fentaNYL 100 MCG/2 ML SDV IVPUSH ONE (15:59)
[2019-12-29 16:30] VITALS: BP 91/72; PULSE 75
== END 2019-12-29 17:11 ==
LOC: JP.ED 13:32
DX: I21.4 Non-ST elevation (NSTEMI) myocardial infarction (principal); I25.10 Atherosclerotic heart disease of native coronary artery without angina pectoris; I10 Essential (primary) hypertension; I25.2 Old myocardial infarction; J44.9 Chronic obstructive pulmonary disease, unspecified; G62.9 Polyneuropathy, unspecified; Z88.5 Allergy status to narcotic agent; Z79.82 Long term (current) use of aspirin; Z79.899 Other long term (current) drug therapy; Z95.5 Presence of coronary angioplasty implant and graft
CPT/HCPCS: 36415; 80048; 84484; 85025; 85379; 85610; 85730; 93005; 96365; 99284; A9270; J1644; 93010

== ENCOUNTER 2020-02-09 22:56 | Emergency (ER) | payer OTHER ==
[2020-02-09 23:10] VITALS: BP 132/86; PULSE 84
--- NOTE | 2020-02-10 00:02 | EDM.PDOC ---
ED HPI GENERAL MEDICAL PROBLEM - General Chief Complaint: Respiratory Problem Stated Complaint: BREATHING TROUBLE Time Seen by Provider: 02/09/20 23:57 Source of Information: Reports: Patient, Old Records, RN History Limitations: Reports: No Limitations - History of Present Illness INITIAL COMMENTS - FREE TEXT/NARRATIVE: 64 yo male with known COPD and who was dx with Covid this past Tuesday reports that he is SOB and has bilateral shoulder pain, L>L. He has not had a fever. He is on oxygen at 5 liters/min/NC around the clock. he denies injury to his shoulder(s). He is [facility] and has not been able to get an appt in [place] with his provider. He is trying various OTC agents for his shoulder pain without benefit. Onset: Gradual (breathing started getting worse this past Tuesday, his shoulder has been bothering him for 6 weeks. ) Duration: Getting Worse Location: Reports: Chest, Upper Extremity, Left Quality: Reports: Ache (shoulder) Severity: Moderate (shoulder pain) Improves with: Reports: None Worsens with: Reports: Movement Context: Reports: Other (See HPI) Associated Symptoms: Reports: Shortness of Breath. 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 (see below) (none) bilateral shoulder pain Pain Score (Numeric/FACES): 9 - Related Data Allergies Allergy/AdvReac Type Severity Reaction Status Date / Time morphine AdvReac Hallucinati Verified 02/09/20 23:06 ons Home Meds: Home Meds predniSONE [Prednisone] 1 mg PO DAILY 07/30/14 [History] Albuterol [Proventil HFA] 2 puff INH TID PRN 10/04/15 [History] Budesonide/Formoterol [Symbicort 80-4.5 MCG] 2 puff INH BID 04/12/16 [History] Acetaminophen [Tylenol Extra Strength] 500 mg PO Q4HR 05/22/16 [History] Aspirin [Ecotrin EC] 81 mg PO DAILY 05/22/16 [History] Metoprolol Tartrate 25 mg PO BID 05/22/16 [History] Pregabalin [Lyrica] 150 mg PO TID 08/30/19 [History] Tiotropium [Spiriva HandiHaler] 18 mcg INH DAILY 08/30/19 [History] Cholecalciferol (Vitamin D3) [D3 Dots] 2,000 unit PO DAILY 12/28/19 [History] Cyanocobalamin (Vitamin B-12) [B-12] 1,000 mcg PO BID 12/28/19 [History] Nitroglycerin [Nitrostat] 0.4 mg SL ASDIRECTED PRN 12/28/19 [History] Albuterol Sulfate 2.5 mg IH ASDIRECTED PRN 02/09/20 [History] Clopidogrel [Plavix] 75 mg PO DAILY 02/09/20 [History] DULoxetine [Cymbalta] 30 mg PO DAILY 02/09/20 [History] Nicotine [Nicotine Patch] 14 mg TOP DAILY 02/09/20 [History] atorvaSTATin [Lipitor] 80 mg PO BEDTIME 02/09/20 [History] Past Medical History HEENT History: Reports: Impaired Vision Cardiovascular History: Reports: CAD, High Cholesterol, Hypertension, [place], Stents Respiratory History: Reports: COPD Gastrointestinal History: Reports: None Musculoskeletal History: Reports: Back Pain, Chronic, Other (See Below) Other Musculoskeletal History: spondylosis Neurological History: Reports: Neuropathy, Peripheral - Infectious Disease History Infectious Disease History: Reports: Chicken Pox, Measles, Mumps, Novel Coronavirus Other Infectious Disease History: unknown - Past Surgical History Head Surgeries/Procedures: Reports: None HEENT Surgical History: Reports: None Cardiovascular Surgical History: Reports: Coronary Artery Stent Respiratory Surgical History: Reports: None GI Surgical History: Reports: Cholecystectomy, Hernia Repair/Other Neurological Surgical History: Reports: None Musculoskeletal Surgical History: Reports: None Dermatological Surgical History: Reports: None Social & Family History - Family History Family Medical History: Noncontributory - Tobacco Use Smoking Status *Q: Former Smoker Used Tobacco, but Quit: Yes Month/Year Tobacco Last Used: 12/28/2019 - Caffeine Use Caffeine Use: Reports: Coffee - Recreational Drug Use Recreational Drug Use: No ED ROS GENERAL - Review of Systems Review Of Systems: See Below Constitutional: Reports: No Symptoms HEENT: Reports: No Symptoms Respiratory: Reports: Shortness of Breath (chronic). Denies: Pleuritic Chest Pain, Cough, Sputum, Hemoptysis Cardiovascular: Reports: No Symptoms GI/Abdominal: Reports: No Symptoms : Reports: No Symptoms Musculoskeletal: Reports: Shoulder Pain (bilaterally, L > R) Skin: Reports: No Symptoms Neurological: Reports: No Symptoms ED EXAM, GENERAL - Physical Exam Exam: See Below Exam Limited By: No Limitations General Appearance: Alert, No Apparent Distress, Thin Eye Exam: Bilateral Eye: Normal Inspection, PERRL Ears: Normal External Exam, Normal Canal, Hearing Grossly Normal, Normal TMs Ear Exam: Bilateral Ear: Auricle Normal, Canal Normal, TM normal Nose: Normal Inspection, No Blood Throat/Mouth: Normal Inspection, Normal Lips, Normal Oropharynx, Normal Voice, No Airway Compromise Head: Atraumatic, Normocephalic Neck: Normal Inspection Respiratory/Chest: Decreased Breath Sounds. No: Chest Non-Tender Cardiovascular: Regular Rate, Rhythm, No Edema Back Exam: Normal Inspection Extremities: Normal Inspection. No: Normal Range of Motion (unable to abduct past 90 degrees on the left) Neurological: Alert, Oriented, CN II-XII Intact, Normal Cognition, No Devon r/Sensory Deficits Psychiatric: Normal Affect, Normal Mood Skin Exam: Warm, Dry, Intact, Normal Color, No Rash Course - Vital Signs Last Recorded V/S: Last Vital Signs Temp 35.6 C L 02/09/20 23:10 Pulse 84 02/09/20 23:10 Resp 21 H 02/09/20 23:10 BP 132/86 02/09/20 23:10 Pulse Ox 88 L 02/09/20 23:10 - Orders/Labs/Meds Labs: Laboratory Tests 02/09/20 02/09/20 02/09/20 Range/Units 00:10 00:10 00:10 WBC 4.6 (4.5-11.0) K/uL RBC 4.98 (4.30-5.90) M/uL Hgb 13.9 (12.0-15.0) g/dL Hct 43.1 (40.0-54.0) % MCV 87 (80-98) fL MCH 28 (27-31) pg MCHC 32 (32-36) % Plt Count 175 (150-400) K/uL D-Dimer, Quantitative 735 H (0.0-400.0) ng/mL Sodium 134 L (140-148) mmol/L Potassium 4.7 (3.6-5.2) mmol/L Chloride 101 (100-108) mmol/L Carbon Dioxide 28 (21-32) mmol/L Anion Gap 9.7 (5.0-14.0) mmol/L BUN 14 (7-18) mg/dL Creatinine 1.0 (0.8-1.3) mg/dL Est Cr Clr Drug Dosing 80.19 mL/min Estimated GFR (MDRD) > 60 (>60) Glucose 91 (74-106) mg/dL Calcium 8.6 (8.5-10.1) mg/dL Lactate Dehydrogenase 425 H (85-227) U/L C-Reactive Protein 3.27 H (0.0-0.3) mg/dL - Re-Assessments/Exams Free Text/Narrative Re-Assessment/Exam: 02/10/20 01:12 Offered him admission/transfer regarding his Covid infection, declined and wants to go home. Departure - Departure Time of Disposition: :20 Disposition: Home, Self-Care 01 Condition: Fair Clinical Impression: Coronavirus infection, Disorder of left rotator cuff COPD (chronic obstructive pulmonary disease) Qualifiers: COPD type: emphysema Emphysema type: panlobular Qualified Code(s): J43.1 - Panlobular emphysema - Discharge Information *PRESCRIPTION DRUG MONITORING PROGRAM REVIEWED*: No *COPY OF PRESCRIPTION DRUG MONITORING REPORT IN PATIENT BARBARA: No Referrals: PCP,None [Primary Care Provider] - Forms: ED Department Discharge Additional Instructions: Try Voltaren Gel applied to the left shoulder every 6 hrs. Take acetaminophen per package instructions for added relief. Use your sling for shoulder support. See your [facility] doctor to get a referral to orthopedics for your shoulder problem. If you breathing gets worse return here or consider going straight to [place] as they have a Covid unit. Sepsis Event Note (ED) - Evaluation Sepsis Screening Result: No Definite Risk - Focused Exam Vital Signs: Vital Signs Temp Pulse Resp BP Pulse Ox 02/09/20 23:10 35.6 C L 84 21 H 132/86 88 L 02/09/20 23:09 35.6 C L 84 21 H 132/86 88 L
== END 2020-02-10 01:25 | disposition home or self-care (01) ==
LOC: JP.ED 22:56
DX: J43.1 Panlobular emphysema (principal); U07.1 COVID-19; M75.102 Unspecified rotator cuff tear or rupture of left shoulder, not specified as traumatic; E78.00 Pure hypercholesterolemia, unspecified; I10 Essential (primary) hypertension; I25.2 Old myocardial infarction; I25.10 Atherosclerotic heart disease of native coronary artery without angina pectoris; Z95.5 Presence of coronary angioplasty implant and graft; G62.9 Polyneuropathy, unspecified; Z88.5 Allergy status to narcotic agent; Z79.82 Long term (current) use of aspirin; Z79.02 Long term (current) use of antithrombotics/antiplatelets; Z79.899 Other long term (current) drug therapy; Z87.891 Personal history of nicotine dependence
CPT/HCPCS: 36415; 80048; 83615; 85027; 85379; 86140; 99283; 99284

== ENCOUNTER 2020-02-12 11:52 | Emergency (ER) | payer OTHER ==
[2020-02-12] MEDS ORDERED: Ondansetron 4 MG Tab.DIS PO ONE (12:57)
--- NOTE | 2020-02-12 13:01 | EDM.PDOC ---
ED HPI GENERAL MEDICAL PROBLEM - General Chief Complaint: Respiratory Problem Stated Complaint: SOB Time Seen by Provider: 02/12/20 12:40 Source of Information: Reports: Patient, Old Records, RN History Limitations: Reports: No Limitations - History of Present Illness INITIAL COMMENTS - FREE TEXT/NARRATIVE: 64 yo male presents with known Covid infection. Says the he continues to have intermittent diarrhea and nausea without vomiting. His breathing is a little worse so now he is not able to sleep. Onset: Gradual Onset Date: 02/03/20 Duration: Day(s): Location: Reports: Generalized (a) Quality: Reports: Other (pain is not a big issue ) Severity: Moderate (overall) Improves with: Reports: None Worsens with: Reports: Other (? time) Context: Reports: Other (See HPI) Associated Symptoms: Reports: Nausea/Vomiting (no vomiting), Shortness of Breath (mildly worse than normal). 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) (usual meds, not using his inhalers) - Related Data Allergies Allergy/AdvReac Type Severity Reaction Status Date / Time morphine AdvReac Hallucinati Verified 02/12/20 12:00 ons Home Meds: Home Meds predniSONE [Prednisone] 1 mg PO DAILY 07/30/14 [History] Albuterol [Proventil HFA] 2 puff INH TID PRN 10/04/15 [History] Budesonide/Formoterol [Symbicort 80-4.5 MCG] 2 puff INH BID 04/12/16 [History] Acetaminophen [Tylenol Extra Strength] 500 mg PO Q4HR 05/22/16 [History] Aspirin [Ecotrin EC] 81 mg PO DAILY 05/22/16 [History] Metoprolol Tartrate 25 mg PO BID 05/22/16 [History] Pregabalin [Lyrica] 150 mg PO TID 08/30/19 [History] Tiotropium [Spiriva HandiHaler] 18 mcg INH DAILY 08/30/19 [History] Cholecalciferol (Vitamin D3) [D3 Dots] 2,000 unit PO DAILY 12/28/19 [History] Cyanocobalamin (Vitamin B-12) [B-12] 1,000 mcg PO BID 12/28/19 [History] Nitroglycerin [Nitrostat] 0.4 mg SL ASDIRECTED PRN 12/28/19 [History] Albuterol Sulfate 2.5 mg IH ASDIRECTED PRN 02/09/20 [History] Clopidogrel [Plavix] 75 mg PO DAILY 02/09/20 [History] DULoxetine [Cymbalta] 30 mg PO DAILY 02/09/20 [History] Nicotine [Nicotine Patch] 14 mg TOP DAILY 02/09/20 [History] atorvaSTATin [Lipitor] 80 mg PO BEDTIME 02/09/20 [History] Ondansetron [Zofran ODT] 4 mg PO Q6H PRN #14 tab.dis 02/12/20 [Rx] Zolpidem Tartrate [Ambien] 10 mg PO BEDTIME PRN #7 tablet 02/12/20 [Rx] Past Medical History HEENT History: Reports: Impaired Vision Cardiovascular History: Reports: CAD, High Cholesterol, Hypertension, [place], Stents Respiratory History: Reports: COPD Gastrointestinal History: Reports: None Musculoskeletal History: Reports: Back Pain, Chronic, Other (See Below) Other Musculoskeletal History: spondylosis Neurological History: Reports: Neuropathy, Peripheral - Infectious Disease History Infectious Disease History: Reports: Chicken Pox, Measles, Mumps, Novel Coronavirus Other Infectious Disease History: unknown - Past Surgical History Head Surgeries/Procedures: Reports: None HEENT Surgical History: Reports: None Cardiovascular Surgical History: Reports: Coronary Artery Stent Respiratory Surgical History: Reports: None GI Surgical History: Reports: Cholecystectomy, Hernia Repair/Other Neurological Surgical History: Reports: None Musculoskeletal Surgical History: Reports: None Dermatological Surgical History: Reports: None Social & Family History - Family History Family Medical History: Noncontributory - Tobacco Use Smoking Status *Q: Former Smoker Used Tobacco, but Quit: Yes Month/Year Tobacco Last Used: 3 - Caffeine Use Caffeine Use: Reports: Coffee ED ROS GENERAL - Review of Systems Review Of Systems: See Below Constitutional: Reports: Malaise HEENT: Reports: No Symptoms Respiratory: Reports: Shortness of Breath (somewhat worse than usual). Denies: Wheezing, Cough, Sputum, Hemoptysis Cardiovascular: Reports: No Symptoms GI/Abdominal: Reports: Diarrhea (on and off), Nausea Musculoskeletal: Reports: No Symptoms Skin: Reports: No Symptoms Neurological: Reports: No Symptoms Psychiatric: Reports: No Symptoms ED EXAM, GENERAL - Physical Exam Exam: See Below Exam Limited By: No Limitations General Appearance: Alert, WD/WN, No Apparent Distress Eye Exam: Bilateral Eye: Normal Inspection Ears: Normal External Exam, Normal Canal, Hearing Grossly Normal Ear Exam: Bilateral Ear: Auricle Normal, Canal Normal Nose: Normal Inspection, No Blood Throat/Mouth: Normal Inspection, Normal Lips, Normal Oropharynx, Normal Voice, No Airway Compromise Head: Atraumatic, Normocephalic Neck: Normal Inspection Respiratory/Chest: No Respiratory Distress, Lungs Clear, No Accessory Muscle Use, Decreased Breath Sounds. No: Wheezing Cardiovascular: Regular Rate, Rhythm, No Edema GI/Abdominal: Normal Bowel Sounds, Soft, Non-Tender, No Distention Extremities: Normal Inspection, Normal Range of Motion, Non-Tender, No Pedal Edema Neurological: Alert, Oriented, CN II-XII Intact, Normal Cognition, No Motor/Sensory Deficits Psychiatric: Normal Affect, Normal Mood Skin Exam: Warm, Dry, Intact, Normal Color, No Rash Course - Vital Signs Last Recorded V/S: Last Vital Signs Temp 35.6 C L 02/12/20 11:57 Pulse 75 02/12/20 13:37 Resp 20 02/12/20 13:37 BP 129/78 02/12/20 13:37 Pulse Ox 92 L 02/12/20 13:37 - Orders/Labs/Meds Labs: Laboratory Tests 02/12/20 02/12/20 02/12/20 Range/Units 12:12 12:12 12:12 WBC 7.1 (4.5-11.0) K/uL RBC 5.18 (4.30-5.90) M/uL Hgb 14.4 (12.0-15.0) g/dL Hct 44.2 (40.0-54.0) % MCV 85 (80-98) fL MCH 28 (27-31) pg MCHC 33 (32-36) % Plt Count 230 (150-400) K/uL D-Dimer, Quantitative 1530 H (0.0-400.0) ng/mL Sodium 134 L (140-148) mmol/L Potassium 3.8 (3.6-5.2) mmol/L Chloride 98 L (100-108) mmol/L Carbon Dioxide 25 (21-32) mmol/L Anion Gap 14.8 H (5.0-14.0) mmol/L BUN 12 (7-18) mg/dL Creatinine 0.9 (0.8-1.3) mg/dL Est Cr Clr Drug Dosing 91.24 mL/min Estimated GFR (MDRD) > 60 (>60) Glucose 78 (74-106) mg/dL Calcium 8.4 L (8.5-10.1) mg/dL Lactate Dehydrogenase (85-227) U/L C-Reactive Protein 8.03 H (0.0-0.3) mg/dL 02/12/20 Range/Units 12:12 WBC (4.5-11.0) K/uL RBC (4.30-5.90) M/uL Hgb (12.0-15.0) g/dL Hct (40.0-54.0) % MCV (80-98) fL MCH (27-31) pg MCHC (32-36) % Plt Count (150-400) K/uL D-Dimer, Quantitative (0.0-400.0) ng/mL Sodium (140-148) mmol/L Potassium (3.6-5.2) mmol/L Chloride (100-108) mmol/L Carbon Dioxide (21-32) mmol/L Anion Gap (5.0-14.0) mmol/L BUN (7-18) mg/dL Creatinine (0.8-1.3) mg/dL Est Cr Clr Drug Dosing mL/min Estimated GFR (MDRD) (>60) Glucose (74-106) mg/dL Calcium (8.5-10.1) mg/dL Lactate Dehydrogenase 403 H (85-227) U/L C-Reactive Protein (0.0-0.3) mg/dL Meds: Medications Discontinued Medications Generic Name Dose Route Start Last Admin Trade Name Freq PRN Reason Stop Dose Admin Acetaminophen 650 mg 02/12/20 13:04 02/12/20 13:32 Tylenol PO 02/12/20 13:05 650 mg NOW ONE Administration Ondansetron HCl 4 mg 02/12/20 12:57 02/12/20 13:32 Zofran Odt PO 02/12/20 12:58 4 mg ONETIME ONE Administration - Re-Assessments/Exams Free Text/Narrative Re-Assessment/Exam: 02/12/20 13:54 Gave him Zofran and lunch. Tolerated this well. Case discussed with Dr. Dawson Departure - Departure Time of Disposition: 14:10 Disposition: Home, Self-Care 01 Condition: Fair Clinical Impression: COVID-19, Nausea Insomnia Qualifiers: Insomnia type: due to medical condition Qualified Code(s): G47.01 - Insomnia due to medical condition - Discharge Information *PRESCRIPTION DRUG MONITORING PROGRAM REVIEWED*: No *COPY OF PRESCRIPTION DRUG MONITORING REPORT IN PATIENT BARBARA: No Prescriptions: Zolpidem Tartrate [Ambien] 10 mg PO BEDTIME PRN #7 tablet PRN Reason: Insomnia Ondansetron [Zofran ODT] 4 mg PO Q6H PRN #14 tab.dis PRN Reason: Nausea Referrals: PCP,None [Primary Care Provider] - Forms: ED Department Discharge Additional Instructions: Take Zofran as directed for nausea control. Take Ambien at bedtime as needed for insomnia. Continue your other medications as before. Return for fever, or worsening shortness of breath. If you return come on portable oxygen. Sepsis Event Note (ED) - Evaluation Sepsis Screening Result: No Definite Risk - Focused Exam Vital Signs: Vital Signs Temp Pulse Resp BP Pulse Ox 02/12/20 13:37 75 20 129/78 92 L 02/12/20 11:57 35.6 C L 99 22 H 89 L
[2020-02-12] MEDS ORDERED: Acetaminophen 325 MG Tab PO ONE (13:04)
[2020-02-12 13:38] VITALS: BP 129/78; PULSE 75
== END 2020-02-12 14:27 | disposition home or self-care (01) ==
LOC: JP.ED 11:52
DX: U07.1 COVID-19 (principal); G47.01 Insomnia due to medical condition; I10 Essential (primary) hypertension; E78.00 Pure hypercholesterolemia, unspecified; I25.10 Atherosclerotic heart disease of native coronary artery without angina pectoris; I25.2 Old myocardial infarction; J44.9 Chronic obstructive pulmonary disease, unspecified; Z95.5 Presence of coronary angioplasty implant and graft; Z88.5 Allergy status to narcotic agent; Z79.82 Long term (current) use of aspirin; Z79.02 Long term (current) use of antithrombotics/antiplatelets; Z79.899 Other long term (current) drug therapy; Z90.49 Acquired absence of other specified parts of digestive tract; Z87.891 Personal history of nicotine dependence
CPT/HCPCS: 36415; 80048; 83615; 85027; 85379; 86140; 99284; A9270; 99283

== ENCOUNTER 2020-12-27 09:47 | Emergency (ER) | payer OTHER ==
--- NOTE | 2020-12-27 09:59 | EDM.PDOC ---
ED HPI GENERAL MEDICAL PROBLEM - General Chief Complaint: Chest Pain Stated Complaint: heart problems Time Seen by Provider: 12/27/20 09:58 Source of Information: Reports: Patient, Old Records, RN History Limitations: Reports: No Limitations - History of Present Illness INITIAL COMMENTS - FREE TEXT/NARRATIVE: 65 yo male with known COPD and who recalls falling in his garage a week ago awoke with marked pleuritic pain to the R side of his chest under his axilla. Pain is worse with coughing. He has not had calf pain or swelling. He got partial relief with ibuprofen 600 mg taken about 0730h today. No nausea or diaphoresis. Denies neck pain, but has numbness going down his R arm that is not made worse by coughing. Does have neuropathy of both lower legs. 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 Right Chest Pain Score (Numeric/FACES): 9 - Related Data Allergies Allergy/AdvReac Type Severity Reaction Status Date / Time morphine AdvReac Hallucinati Verified 02/12/20 12:00 ons Home Meds: Home Meds predniSONE [Prednisone] 1 mg PO DAILY 07/30/14 [History] Albuterol [Proventil HFA] 2 puff INH TID PRN 10/04/15 [History] Budesonide/Formoterol [Symbicort 80-4.5 MCG] 2 puff INH BID 04/12/16 [History] Acetaminophen [Tylenol Extra Strength] 500 mg PO Q4HR 05/22/16 [History] Aspirin [Ecotrin EC] 81 mg PO DAILY 05/22/16 [History] Metoprolol Tartrate 25 mg PO BID 05/22/16 [History] Pregabalin [Lyrica] 200 mg PO TID 08/30/19 [History] Tiotropium [Spiriva HandiHaler] 18 mcg INH DAILY 08/30/19 [History] Cholecalciferol (Vitamin D3) [D3 Dots] 2,000 unit PO DAILY 12/28/19 [History] Cyanocobalamin (Vitamin B-12) [B-12] 1,000 mcg PO BID 12/28/19 [History] Nitroglycerin [Nitrostat] 0.4 mg SL ASDIRECTED PRN 12/28/19 [History] Albuterol Sulfate 2.5 mg IH ASDIRECTED PRN 02/09/20 [History] Clopidogrel [Plavix] 75 mg PO DAILY 02/09/20 [History] DULoxetine [Cymbalta] 30 mg PO DAILY 02/09/20 [History] atorvaSTATin [Lipitor] 80 mg PO BEDTIME 02/09/20 [History] Acetaminophen/oxyCODONE [Percocet 325-5 MG] 1 each PO Q4H PRN #12 tab 12/27/20 [Rx] Past Medical History HEENT History: Reports: Impaired Vision Cardiovascular History: Reports: CAD, High Cholesterol, Hypertension, [place], Stents Respiratory History: Reports: COPD Gastrointestinal History: Reports: None Musculoskeletal History: Reports: Back Pain, Chronic, Other (See Below) Other Musculoskeletal History: spondylosis Neurological History: Reports: Neuropathy, Peripheral - Infectious Disease History Infectious Disease History: Reports: Chicken Pox, Measles, Mumps, Novel Coronavirus Other Infectious Disease History: unknown - Past Surgical History Head Surgeries/Procedures: Reports: None HEENT Surgical History: Reports: None Cardiovascular Surgical History: Reports: Coronary Artery Stent Respiratory Surgical History: Reports: None GI Surgical History: Reports: Cholecystectomy, Hernia Repair/Other Neurological Surgical History: Reports: None Musculoskeletal Surgical History: Reports: None Dermatological Surgical History: Reports: None Social & Family History - Family History Family Medical History: No Pertinent Family History - Tobacco Use Tobacco Use Status *Q: Former Tobacco User Used Tobacco, but Quit: Yes Month/Year Tobacco Last Used: 2019 - Caffeine Use Caffeine Use: Reports: Coffee, Soda, Tea - Recreational Drug Use Recreational Drug Use: No ED ROS GENERAL - Review of Systems Review Of Systems: See Below Constitutional: Reports: No Symptoms HEENT: Reports: No Symptoms Respiratory: Reports: Pleuritic Chest Pain (R lateral). Denies: Shortness of Breath, Cough, Sputum, Hemoptysis Cardiovascular: Reports: Chest Pain (sharp R sided). Denies: No Symptoms GI/Abdominal: Reports: No Symptoms : Reports: No Symptoms Musculoskeletal: Reports: No Symptoms Skin: Reports: No Symptoms Neurological: Reports: Numbness (R arm that is new) Psychiatric: Reports: No Symptoms ED EXAM, GENERAL - Physical Exam Exam: See Below Exam Limited By: No Limitations General Appearance: Alert, WD/WN, No Apparent Distress Eye Exam: Bilateral Eye: Normal Inspection Ears: Normal External Exam, Normal Canal, Hearing Grossly Normal Ear Exam: Bilateral Ear: Auricle Normal, Canal Normal Nose: Normal Inspection, No Blood Throat/Mouth: Normal Inspection, Normal Lips, Normal Oropharynx, Normal Voice, No Airway Compromise Head: Atraumatic, Normocephalic Neck: Normal Inspection, Supple, Non-Tender Respiratory/Chest: No Accessory Muscle Use, Decreased Breath Sounds. No: Chest Non-Tender (has sharp pain when his rib(s) are palpated on the R side of his chest near the axilla), Respiratory Distress, Wheezing Cardiovascular: Regular Rate, Rhythm, No Edema GI/Abdominal: Normal Bowel Sounds, Soft, Non-Tender, No Distention Extremities: Normal Inspection, Normal Range of Motion, Non-Tender, No Pedal Edema Neurological: Alert, Oriented, CN II-XII Intact, Normal Cognition, Other (only neuro deficit is subjective RUE numbness) Psychiatric: Normal Affect, Normal Mood Skin Exam: Warm, Dry, Intact, Ecchymosis (scattered from capilllary fragility) #1 Interpretation EKG Date: 12/27/20 Time: 09:45 Rhythm: NSR Rate (Beats/Min): 61 Anselmo: Normal P-Wave: Present QRS: Normal ST-T: Normal QT: Normal Comparison: No Change Course - Vital Signs Last Recorded V/S: Last Vital Signs Temp 36.5 C 12/27/20 09:51 Pulse 63 12/27/20 10:40 Resp 14 12/27/20 10:40 BP 122/78 12/27/20 10:40 Pulse Ox 91 L 12/27/20 10:40 - Orders/Labs/Meds Orders: Active Orders 24 hr Category Date Time Status Cardiac Monitoring [RC] .As Directed Care 12/27/20 09:48 Active EKG 12 Lead [EK] Routine Ther 12/27/20 09:54 Ordered Meds: Medications Discontinued Medications Generic Name Dose Route Start Last Admin Trade Name Freq PRN Reason Stop Dose Admin Oxycodone/Acetaminophen 1 tab 12/27/20 10:11 12/27/20 10:19 Acetaminophen/Oxycodone 325-5 Mg Tab PO 12/27/20 10:12 1 tab ONETIME STA Administration - Radiology Interpretation Free Text/Narrative:: Rib X-rays-neg - Re-Assessments/Exams Free Text/Narrative Re-Assessment/Exam: 12/27/20 11:40 Got good pain relief with the Percocet Departure - Departure Time of Disposition: 11:40 Disposition: Home, Self-Care 01 Condition: Fair Clinical Impression: Rib pain on right side Referrals: PCP,None [Primary Care Provider] - Forms: ED Department Discharge Additional Instructions: Take ibuprofen 400 mg every 6 hrs with food for pain relief. Add either acetaminophen for mild pain OR Percocet for more severe pain as needed. Recheck in the clinic with your provider for recheck later this next week. Return as needed. Sepsis Event Note (ED) - Evaluation Sepsis Screening Result: No Definite Risk - Focused Exam Vital Signs: Vital Signs Temp Pulse Resp BP Pulse Ox 12/27/20 10:40 63 14 122/78 91 L 12/27/20 10:25 58 L 14 99/59 L 94 L 12/27/20 09:51 36.5 C 62 20 133/77 94 L - My Orders Last 24 Hours: My Active Orders 12/27/20 09:48 Cardiac Monitoring [RC] .As Directed 12/27/20 09:54 EKG 12 Lead [EK] Routine - Assessment/Plan Last 24 Hours: My Active Orders 12/27/20 09:48 Cardiac Monitoring [RC] .As Directed 12/27/20 09:54 EKG 12 Lead [EK] Routine
[2020-12-27] MEDS ORDERED: Acetaminophen/oxyCODONE 325-5 MG Tab PO STA (10:11)
--- NOTE | 2020-12-27 11:33 | CRLCR ---
For Patients: As a result of the Cures Act, medical imaging exams and procedure reports are released immediately into your electronic medical record. You may view this report before your referring provider. If you have questions, please contact your health care provider. INDICATION: fall with R axillary rib area pain Indication: Fall. Right axillary/rib pain. Technique: Right rib series, three views. Comparison: None. Findings: The right AC and CC intervals are normal. The right humeral head appears intact. There is no displaced rib fracture. There is no pneumothorax. There is no deep sulcus sign. Surgical clips in the right upper quadrant, consistent with cholecystectomy. Nonobstructive bowel gas pattern. Impression: 1. No displaced rib fracture. The scapula appears intact. 2. There is no pneumothorax or deep sulcus sign. Dictated by Kory Cain MD @ 12/27/2020 11:30:17 AM Dictated by: Kory Cain MD @ 12/27/2020 11:30:26 (Electronically Signed)
[2020-12-27 11:47] VITALS: BP 91/74; PULSE 58
== END 2020-12-27 12:05 | disposition home or self-care (01) ==
LOC: JP.ED 09:47
DX: R07.81 Pleurodynia (principal); I25.10 Atherosclerotic heart disease of native coronary artery without angina pectoris; E78.00 Pure hypercholesterolemia, unspecified; I10 Essential (primary) hypertension; I25.2 Old myocardial infarction; J44.9 Chronic obstructive pulmonary disease, unspecified; Z95.5 Presence of coronary angioplasty implant and graft; Z87.891 Personal history of nicotine dependence; Z88.5 Allergy status to narcotic agent; Z79.82 Long term (current) use of aspirin; Z79.02 Long term (current) use of antithrombotics/antiplatelets; Z79.899 Other long term (current) drug therapy
CPT/HCPCS: 71101; 93005; 99284; A9270